=== PATIENT | male | born 1930 | race Caucasian/White ===

== ENCOUNTER → 2016-05-04 | Outpatient (CLI) | payer MEDICARE, OTHER ==
--- NOTE | 2016-05-04 12:11 | BD ---
EXAMINATION TYPE: MG DEXA axial skeleton. DATE OF EXAM: 05/04/2016 11:36 AM COMPARISON: 12.12.2005 CLINICAL HISTORY: M81.0 KNOWN OSTEOPOROSIS Height: 66.5 Weight: 175 FRAX RISK QUESTIONS: Alcohol (3 or more units per day): NO Family History (Parent hip fracture): UNKNOWN Glucocorticoids (More than 3mos): NO (Ex: prednisone, prednisolone, methylprednisolone, dexamethasone, and hydrocortisone). History of Fracture in Adulthood: YES Secondary Osteoporosis: YES 1. Type 1 Diabetes: TYPE 2 2. Hyperthyroidism: NO 3. Menopause before 45: NA 4. Malnutrition: PT COULD NOT ANSWER TO THIS 5. Chronic liver disease: NO Rheumatoid Arthritis: NO Current Tobacco Use: NO RISK FACTORS HISTORY OF: Other Fractures since Age 48: RT WRIST AND RT SHOULDER When: > 48 YRS OLD Family History of Osteoporosis: NONE KNOWN Smoke tobacco: NO Drink Alcohol: NO Active: NOT REALLY Diet low in dairy products/other sources of calcium: NO Lost more than 2 inches in height since high school: YES Frequent falls: UNSTEADY, USE CANE AND WALKER Poor Health: ELDERLY Adrenal Insufficiency: NO MEDICATIONS: Osteoporosis Medications: YES Which medication: FOSAMAX How Long: SINCE 2005 Additional Medications: BP MEDS, STATIN MEDICATION FOR CHOLESTEROL, ORAL DIABETIC MEDS, VIT D, Additional History: ARTHRITIS, DIABETIC, HYPERTENSION EXAM MEASUREMENTS: Bone mineral densitometry was performed using the [employer] System. Bone mineral density as measured about the Lumbar spine is: ----- L1-L4(G/cm2): 1.420 T Score Values are as follows: ----- L1: 1.1 ----- L2: 2.3 ----- L3: 2.1 ----- L4: 2.3 ----- L1-L4: 2.0 Bone mineral density has: Increased 14.1% since study of: 12.12.2005 Bone mineral density about the R hip (g/cm2): 0.949 Bone mineral density about the L hip (g/cm2): 0.952 T Score values are as follows: -----R Neck: -0.6 -----L Neck: -0.6 -----R Intertrochanter: 1.2 -----L Intertrochanter: 0.9 Bone mineral density has: Increased 7.0% since study of: 12.12.2005 FRAX%'S: FOR MAJOR OSTEOPOROTIC FX: 8.0%.....FOR HIP FX: 2.7% PROBABILITY OF FX IN 10 YRS TIME IMPRESSION: Normal (Values between +1 and -1 indicate normal bone mass) FOR BOTH SCANS, L/S SPINE AND BOTH HIP S NOTE: T-SCORE=SD OF THE YOUNG ADULT MEAN.
== END | disposition home or self-care (01) ==
LOC: RADBDWWP 11:09
PROVIDERS: ATTEND Internal Medicine
DX: M85.80 Other specified disorders of bone density and structure, unspecified site (principal)
CPT/HCPCS: 77080

== ENCOUNTER 2016-05-16 23:37 | Emergency (ER) | payer MEDICARE, OTHER ==
[2016-05-17 00:05] VITALS: BP 165/92; PULSE 62; RESP 18; TEMP 98.4
[2016-05-17] MEDS ORDERED: OXYMETAZOLINE 0.05% NASL SPRAY 15 ML NASAL STA (00:25)
[2016-05-17] MEDS ORDERED: AMOXIC-POT CLAV 875MG STARTER 2 EACH TABLET PO STA (00:32)
--- NOTE | 2016-05-17 00:35 | ED ---
General Adult HPI - General Chief complaint: Upper Respiratory Infection Stated complaint: TORI Time Seen by Provider: 05/17/16 00:11 Source: patient, family, RN notes reviewed Mode of arrival: ambulatory Limitations: no limitations - History of Present Illness Initial comments: Chief complaint and history of present illness this is a 5-year-old male here with her son. Patient reports that he called his son because he couldn't breathe out of the left nostril. He is able to do it now partially. It was congested at home. He's had 3 or 4 days of frontal area congestion. No fever no pain - Related Data Previous Rx's Medication Instructions Recorded Amoxicillin/Potassium Clav 1 each PO Q12HR #14 tab 05/17/16 [Augmentin 875-125 Tablet] Allergies Allergy/AdvReac Type Severity Reaction Status Date / Time No Known Allergies Allergy Verified 05/17/16 00:01 Review of Systems ROS Statement: Those systems with pertinent positive or pertinent negative responses have been documented in the HPI. Review of systems no headache he does state he has felt congested for 3-4 days. Denying any fever. Points to the area between the eyes. States he when he awakened he couldn't breathe through his left side of his nose at all and then while coming here opened up slightly. Clear nasal drainage. Denying any visual acuity changes or headache no stiff neck no chest pain shortness breath GI/ problems all systems were otherwise reviewed. Past medical problems significant for type 2 diabetes, hyperlipidemia, hypertension and osteoarthritis. Surgeries hernia repair. Family history mother had uterine cancer and brother had colon cancer. Patient denies any ALLERGIES he quit smoking 60 years ago denies alcohol use ROS Other: All systems not noted in ROS Statement are negative. Past Medical History Past Medical History: Diabetes Mellitus, Hyperlipidemia, Hypertension, Osteoarthritis (OA) History of Any Multi-Drug Resistant Organisms: None Reported Past Surgical History: Hernia Repair Past Psychological History: No Psychological Hx Reported Smoking Status: Former smoker Past Alcohol Use History: None Reported Past Drug Use History: None Reported General Exam - General Exam Comments Initial Comments: General: The patient is awake and alert, in no distress, and does not appear acutely ill. Here because he had difficulty breathing to his left nares and has had nasal congestion frontal area sinus pressure for 4 days. Vital signs show temperature 98.4 pulse 62 respiratory rate 18 pulse ox 94% on room air blood pressure 165/92. The patient does have history of hypertension and he is up late at night with some difficulty breathing. All up with his family physician in the next 1-2 weeks Eye: Pupils are equal, round and reactive to light, extra-ocular movements are intact ; there is normal conjunctiva bilaterally. No signs of icterus. Ears, nose, mouth and throat: There are moist mucous membranes and no oral lesions. Mildly swollen turbinates and nasal congestion on the left side as compared to the right. No bleeding. No masses noted on direct examination Neck: The neck is supple, there is no tenderness , no anterior cervical lymphadenopathy Cardiovascular: There is a regular rate and rhythm. No murmur, rub or gallop is appreciated. Respiratory: Lungs are clear to auscultation, respirations are non-labored, breath sounds are equal. No wheezes, stridor, rales, or rhonchi. Gastrointestinal: No complaint of abdominal pain no nausea no vomiting no complaint of diarrhea. Neurological: No difficulty walking, no apparent neuro deficits complained of. Skin: Skin is warm and dry and no rashes or lesions are noted. Limitations: no limitations Course Vital Signs 05/17/16 00:01 Temperature 98.4 F Pulse Rate 62 Respiratory 18 Rate Blood Pressure 165/92 O2 Sat by Pulse 94 L Oximetry Medical Decision Making - Medical Decision Making The patient will be given Afrin nasal spray to be used to the emergency room. He'll also be placed on Augmentin 875 one twice a day for 7 days. Told follow with the family physician Disposition Clinical Impression: Sinusitis chronic, frontal Disposition: HOME SELF-CARE Condition: Fair Instructions: Rhinosinusitis (ED) Additional Instructions: Take medications as directed until completed. Follow-up with family physician Prescriptions: Amoxicillin/Potassium Clav [Augmentin 875-125 Tablet] 1 each PO Q12HR #14 tab Time of Disposition: 00:34
== END 2016-05-17 00:50 | disposition home or self-care (01) ==
LOC: EC 23:37
DX: J32.9 Chronic sinusitis, unspecified (principal); I10 Essential (primary) hypertension; M19.90 Unspecified osteoarthritis, unspecified site; E78.5 Hyperlipidemia, unspecified; E11.9 Type 2 diabetes mellitus without complications; Z87.891 Personal history of nicotine dependence
CPT/HCPCS: 99284

== ENCOUNTER 2018-02-16 15:22 | Emergency (ER) | payer MEDICARE, OTHER ==
[2018-02-16 15:34] VITALS: RESP 18; TEMP 97.8
--- NOTE | 2018-02-16 15:43 | ED ---
Fall HPI <Sheryl Steen - Last Filed: 02/16/18 17:06> - General Source: patient, EMS Mode of arrival: EMS - History of Present Illness MD Complaint: fall -: minutes(s) Fall From: standing When Fall Occurred: 1 hour BELL[employer]ER Fall Witnessed: yes, by family Place Fall Occurred: street Loss of Consciousness: none Prolonged Down Time?: no Symptoms Prior to Fall: none Location: head Severity: moderate Severity scale (1-10): 2 Context: history of frequent falls Associated Symptoms: denies <Bam Fried - Last Filed: 02/16/18 17:39> - General Chief Complaint: Fall Stated Complaint: Fall Time Seen by Provider: 02/16/18 15:23 - History of Present Illness Initial Comments: This is an 87-year-old male the ER for evaluation of fall mechanical trip and fall. Patient tried to step over a curb was unsuccessful fell forward hit his had his nose and his right hand. Patient has abrasions to all areas of laceration to forehead. No loss of consciousness, not on blood thinners. Patient was ambulatory on the scene (Bam Fried) - Related Data Previous Rx's Medication Instructions Recorded Amoxicillin/Potassium Clav 1 each PO Q12HR #14 tab 05/17/16 [Augmentin 875-125 Tablet] Allergies Allergy/AdvReac Type Severity Reaction Status Date / Time No Known Allergies Allergy Verified 02/16/18 15:33 Review of Systems ROS Other: All systems not noted in ROS Statement are negative. <Sheryl Steen - Last Filed: 02/16/18 17:06> ROS Other: All systems not noted in ROS Statement are negative. <Bam Fried - Last Filed: 02/16/18 17:39> ROS Statement: Those systems with pertinent positive or pertinent negative responses have been documented in the HPI. Past Medical History Past Medical History: Diabetes Mellitus, Hyperlipidemia, Hypertension, Osteoarthritis (OA) History of Any Multi-Drug Resistant Organisms: None Reported Past Surgical History: Hernia Repair Past Psychological History: No Psychological Hx Reported Smoking Status: Former smoker Past Alcohol Use History: None Reported Past Drug Use History: None Reported <Bam Fried - Last Filed: 02/16/18 17:39> General Exam Limitations: no limitations General appearance: alert, in no apparent distress Head exam: Present: normocephalic, normal inspection. Absent: atraumatic (5 cm laceration and anterior scalp) Eye exam: Present: normal appearance, PERRL, EOMI. Absent: scleral icterus, conjunctival injection, periorbital swelling ENT exam: Present: normal exam, mucous membranes moist Neck exam: Present: normal inspection. Absent: tenderness, meningismus, lymphadenopathy Respiratory exam: Present: normal lung sounds bilaterally. Absent: respiratory distress, wheezes, rales, rhonchi, stridor Cardiovascular Exam: Present: regular rate, normal rhythm, normal heart sounds. Absent: systolic murmur, diastolic murmur, rubs, gallop, clicks GI/Abdominal exam: Present: soft, normal bowel sounds. Absent: distended, tenderness, guarding, rebound, rigid Extremities exam: Present: normal inspection, full ROM, normal capillary refill. Absent: tenderness, pedal edema, joint swelling, calf tenderness Back exam: Present: normal inspection Neurological exam: Present: alert, oriented X3, CN II-XII intact Psychiatric exam: Present: normal affect, normal mood Skin exam: Present: warm, dry, intact, normal color. Absent: rash <Bam Fried - Last Filed: 02/16/18 17:39> Course <Sheryl Steen - Last Filed: 02/16/18 17:06> <Bam Fried - Last Filed: 02/16/18 17:39> Vital Signs 02/16/18 15:28 Temperature 97.8 F Pulse Rate 74 Respiratory 18 Rate Blood Pressure 165/82 O2 Sat by Pulse 95 Oximetry - Reevaluation(s) Reevaluation #1: 02/16/18 17:38 Records reviewed A she is without significant complaint, (Bam Fried) Procedures - Laceration Laceration #1 Consent Obtained: verbal consent Indication: laceration Site: face (mid forehead) Size (cm): 3 Description: linear Depth: simple, single layer Anesthetic Used: lidocaine 1% Anesthesia Technique: local infiltration Amount (mls): 3 Pre-repair: wound explored, irrigated extensively, deep structures intact Type of Sutures: nylon Size of Sutures: 6-0 Number of Sutures: 5 Technique: simple, interrupted Patient Tolerated Procedure: well, no complications <Sheryl Steen - Last Filed: 02/16/18 17:06> Medical Decision Making <Sheryl Steen - Last Filed: 02/16/18 17:06> - Radiology Data Radiology results: report reviewed (CT brain C-spine negative for acute disease) , image reviewed <Bam Fried - Last Filed: 02/16/18 17:39> - Medical Decision Making 87 male the ER for evaluation per patient is a status post fall. Fall with laceration to forehead. Patient also has some hand abrasions, all wounds are cleaned, laceration is repaired and patient can be discharged home (Bam Fried) Disposition <Sheryl Steen - Last Filed: 02/16/18 17:06> Is patient prescribed a controlled substance at d/c from ED?: No <Bam Fried - Last Filed: 02/16/18 17:39> Clinical Impression: Fall, Head injury, Laceration Disposition: HOME SELF-CARE Condition: Good Instructions: Laceration (ED), Fall Prevention for Older Adults (ED) Referrals: Duc Houser MD [Primary Care Provider] - 1-2 days
--- NOTE | 2018-02-16 16:12 | CT ---
EXAMINATION TYPE: CT brain ivon orellana DATE OF EXAM: 02/16/2018 COMPARISON: None HISTORY: Fall injury today neck pain. Headache CT DLP: 942.7 mGycm Automated exposure control for dose reduction was used. TECHNIQUE: CT scan of the head and cervical spine are performed without contrast. FINDINGS: There is cerebral cortical atrophy. There is no mass effect nor midline shift. There is n o sign of intracranial hemorrhage. The calvarium is intact. There is a mild cervical kyphotic curvature. There is degenerative disc space narrowing at C5-6 C6-7 with mild spurring of the endplates. Posterior elements are intact. There is no evidence of cervical spine fracture. The skull base is intact. There is mild hypertrophic facet arthropathy. IMPRESSION: Cerebral atrophy. No acute intracranial abnormality. Spondylotic mild changes in the cervical spine. No fracture.
--- NOTE | 2018-02-16 16:17 | XR ---
EXAMINATION TYPE: XR hand complete RT DATE OF EXAM: 02/16/2018 COMPARISON: NONE HISTORY: Pain and bruising TECHNIQUE: 3 views FINDINGS: There is narrowing of IP joint spaces. Metacarpals appear intact. I see no fracture nor dis location. There are no erosions. IMPRESSION: Mild osteoarthritic changes. No fracture seen.
--- NOTE | 2018-02-16 16:18 | XR ---
EXAMINATION TYPE: XR wrist complete RT DATE OF EXAM: 02/16/2018 COMPARISON: NONE HISTORY: Pain and bruising TECHNIQUE: 4 views FINDINGS: I see no fracture nor dislocation. Metacarpals are intact. Carpal bones are intact. IMPRESSION: Negative right wrist exam.
[2018-02-16 17:39] VITALS: BP 160/72; PULSE 64
== END 2018-02-16 17:39 | disposition home or self-care (01) ==
LOC: EC 15:22
DX: S01.81XA Laceration without foreign body of other part of head, initial encounter (principal); S60.511A Abrasion of right hand, initial encounter; M19.90 Unspecified osteoarthritis, unspecified site; Z87.891 Personal history of nicotine dependence; Z91.81 History of falling; W01.10XA Fall on same level from slipping, tripping and stumbling with subsequent striking against unspecified object, initial encounter; Y92.410 Unspecified street and highway as the place of occurrence of the external cause
CPT/HCPCS: 12013; 70450; 72125; 99284

== ENCOUNTER 2018-02-19 12:37 | Inpatient (IN) | payer MEDICARE, OTHER ==
[2018-02-19] MEDS ORDERED: SODIUM CHLORIDE 0.9% 1,000 ML IV STA (12:55)
--- NOTE | 2018-02-19 13:06 | ED ---
Neuro HPI - General Chief Complaint: Neuro Symptoms/Deficit Stated Complaint: altered mental status, slurred speech Time Seen by Provider: 02/19/18 12:55 Source: patient, RN notes reviewed, old records reviewed Mode of arrival: wheelchair Limitations: no limitations, altered mental status - History of Present Illness Is the patient presenting with stroke symptoms?: Yes -: hour(s) Initial Comments: This is a 7-year-old male to the ER for evaluation. Patient was acting normal last night. Recent medical history includes history of trauma fall with head injury. Patient is coming to ER today for evaluation regarding slurred speech and some confusion. Patient is similar episode about a month ago was admitted to the hospital and hence discharged home. Patient himself has no complaints of headache. No recent fevers no chest pain or bowel pain or shortness of breath. Patient's family who is at bedside states patient symptoms are much improved Location: speech History of same: Yes Place: home Severity: mild Quality: weak Improves With: time Worsens With: none On Anticoagulants: Yes Associated Symptoms: confusion Treatments Prior to Arrival: none - Related Data Home Medications: Home Medications Medication Instructions Recorded Confirmed Acetaminophen [Tylenol] 325 mg PO Q4H 02/19/18 02/19/18 Alendronate Sodium [Fosamax] 70 mg PO Q7DAYS 02/19/18 02/19/18 Aspirin [Adult Low Dose Aspirin EC] 81 mg PO DAILY 02/19/18 02/19/18 Atenolol [Tenormin] 25 mg PO DAILY 02/19/18 02/19/18 Cholecalciferol [Vitamin D3] 1,000 unit PO DAILY 02/19/18 02/19/18 Latanoprost [Xalatan 0.005%] 1 drop BOTH EYES HS 02/19/18 02/19/18 Levothyroxine Sodium [Synthroid] 50 mcg PO DAILY 02/19/18 02/19/18 Lisinopril-Hctz 10-12.5 mg 1 tab PO DAILY 02/19/18 02/19/18 [Zestoretic 10-12.5] Pravastatin Sodium [Pravachol] 40 mg PO HS 02/19/18 02/19/18 Propranolol HCl [Inderal] 60 mg PO DAILY 02/19/18 02/19/18 glipiZIDE [Glucotrol] 5 mg PO DAILY 02/19/18 02/19/18 metFORMIN HCL [Glucophage] 500 mg PO DAILY 02/19/18 02/19/18 Allergies/Adverse Reactions: Allergies Allergy/AdvReac Type Severity Reaction Status Date / Time No Known Allergies Allergy Verified 02/19/18 13:40 Review of Systems ROS Statement: Those systems with pertinent positive or pertinent negative responses have been documented in the HPI. ROS Other: All systems not noted in ROS Statement are negative. General Exam - General Exam Comments Initial Comments: NIH of 1 Limitations: no limitations General appearance: alert, in no apparent distress Head exam: Present: atraumatic, normocephalic, normal inspection Eye exam: Present: normal appearance, PERRL, EOMI. Absent: scleral icterus, conjunctival injection, periorbital swelling ENT exam: Present: normal exam, mucous membranes moist Neck exam: Present: normal inspection. Absent: tenderness, meningismus, lymphadenopathy Respiratory exam: Present: normal lung sounds bilaterally. Absent: respiratory distress, wheezes, rales, rhonchi, stridor Cardiovascular Exam: Present: regular rate, normal rhythm, normal heart sounds. Absent: systolic murmur, diastolic murmur, rubs, gallop, clicks GI/Abdominal exam: Present: soft, normal bowel sounds. Absent: distended, tenderness, guarding, rebound, rigid Extremities exam: Present: normal inspection, full ROM, normal capillary refill. Absent: tenderness, pedal edema, joint swelling, calf tenderness Back exam: Present: normal inspection Neurological exam: Present: alert, oriented X3, CN II-XII intact Psychiatric exam: Present: normal affect, normal mood Skin exam: Present: warm, dry, intact, normal color. Absent: rash Stroke MDM - Lab Data Result diagrams: 02/19/18 13:22 02/19/18 13:22 Lab Results 02/19/18 02/19/18 02/19/18 Range/Units 13:22 13:22 13:22 WBC 5.9 (3.8-10.6) k/uL RBC 4.31 (4.30-5.90) m/uL Hgb 13.4 (13.0-17.5) gm/dL Hct 39.1 (39.0-53.0) % MCV 90.8 (80.0-100.0) fL MCH 31.0 (25.0-35.0) pg MCHC 34.2 (31.0-37.0) g/dL RDW 13.7 (11.5-15.5) % Plt Count 126 L (150-450) k/uL Neutrophils % 71 % Lymphocytes % 18 % Monocytes % 6 % Eosinophils % 3 % Basophils % 0 % Neutrophils # 4.2 (1.3-7.7) k/uL Lymphocytes # 1.1 (1.0-4.8) k/uL Monocytes # 0.4 (0-1.0) k/uL Eosinophils # 0.2 (0-0.7) k/uL Basophils # 0.0 (0-0.2) k/uL PT (9.0-12.0) sec INR (<1.2) APTT (22.0-30.0) sec Sodium 139 (137-145) mmol/L Potassium 4.0 (3.5-5.1) mmol/L Chloride 104 (98-107) mmol/L Carbon Dioxide 27 (22-30) mmol/L Anion Gap 8 mmol/L BUN 24 H (9-20) mg/dL Creatinine 1.16 (0.66-1.25) mg/dL Est GFR (CKD-EPI)AfAm 65 (>60 ml/min/1.73 sqM) Est GFR (CKD-EPI)NonAf 56 (>60 ml/min/1.73 sqM) Glucose 121 H (74-99) mg/dL Calcium 9.2 (8.4-10.2) mg/dL Total Bilirubin 0.9 (0.2-1.3) mg/dL AST 17 (17-59) U/L ALT 20 L (21-72) U/L Alkaline Phosphatase 39 (38-126) U/L Total Creatine Kinase 72 (55-170) U/L CK-MB (CK-2) 1.8 (0.0-2.4) ng/mL CK-MB (CK-2) Rel Index 2.5 Troponin I <0.012 (0.000-0.034) ng/mL Total Protein 6.3 (6.3-8.2) g/dL Albumin 3.8 (3.5-5.0) g/dL Urine Color Urine Appearance (Clear) Urine pH (5.0-8.0) Ur Specific [place] (1.001-1.035) Urine Protein (Negative) Urine Glucose (UA) (Negative) Urine Ketones (Negative) Urine Blood (Negative) Urine Nitrite (Negative) Urine Bilirubin (Negative) Urine Urobilinogen (<2.0) mg/dL Ur Leukocyte Esterase (Negative) Urine RBC (0-5) /hpf Urine WBC (0-5) /hpf Urine Mucus (None) /hpf 02/19/18 02/19/18 Range/Units 13:22 14:10 WBC (3.8-10.6) k/uL RBC (4.30-5.90) m/uL Hgb (13.0-17.5) gm/dL Hct (39.0-53.0) % MCV (80.0-100.0) fL MCH (25.0-35.0) pg MCHC (31.0-37.0) g/dL RDW (11.5-15.5) % Plt Count (150-450) k/uL Neutrophils % % Lymphocytes % % Monocytes % % Eosinophils % % Basophils % % Neutrophils # (1.3-7.7) k/uL Lymphocytes # (1.0-4.8) k/uL Monocytes # (0-1.0) k/uL Eosinophils # (0-0.7) k/uL Basophils # (0-0.2) k/uL PT 10.1 (9.0-12.0) sec INR 1.0 (<1.2) APTT 22.5 (22.0-30.0) sec Sodium (137-145) mmol/L Potassium (3.5-5.1) mmol/L Chloride (98-107) mmol/L Carbon Dioxide (22-30) mmol/L Anion Gap mmol/L BUN (9-20) mg/dL Creatinine (0.66-1.25) mg/dL Est GFR (CKD-EPI)AfAm (>60 ml/min/1.73 sqM) Est GFR (CKD-EPI)NonAf (>60 ml/min/1.73 sqM) Glucose (74-99) mg/dL Calcium (8.4-10.2) mg/dL Total Bilirubin (0.2-1.3) mg/dL AST (17-59) U/L ALT (21-72) U/L Alkaline Phosphatase (38-126) U/L Total Creatine Kinase (55-170) U/L CK-MB (CK-2) (0.0-2.4) ng/mL CK-MB (CK-2) Rel Index Troponin I (0.000-0.034) ng/mL Total Protein (6.3-8.2) g/dL Albumin (3.5-5.0) g/dL Urine Color Yellow Urine Appearance Clear (Clear) Urine pH 6.5 (5.0-8.0) Ur Specific [place] 1.014 (1.001-1.035) Urine Protein Negative (Negative) Urine Glucose (UA) 3+ H (Negative) Urine Ketones Negative (Negative) Urine Blood Negative (Negative) Urine Nitrite Negative (Negative) Urine Bilirubin Negative (Negative) Urine Urobilinogen <2.0 (<2.0) mg/dL Ur Leukocyte Esterase Small H (Negative) Urine RBC 1 (0-5) /hpf Urine WBC 2 (0-5) /hpf Urine Mucus Rare H (None) /hpf - NIH Stroke Scale 1a. Level of Consciousness: (0) alert 1b. LOC Questions: (1) answers 1 question correctly 1c. LOC Commands: (1) performs 1 task correctly 2. Best Gaze: (0) normal 3. Visual: (0) no visual loss 4. Facial Palsy: (0) normal symmetrical movement 5a. Motor Arm Left: (0) no drift 5b. Motor Arm Right: (0) no drift 6a. Motor Leg Left: (0) no drift 6b. Motor Leg Right: (0) no drift 7. Limb Ataxia: (0) absent 8. Sensory: (0) normal 9. Best Language: (0) no aphasia 10. Dysarthria: (0) normal 11. Extinction/Inattention: (0) no abnormality - Thrombolytic Inclusion/Exclusion Thrombolytic Contraindications: Rapidly Improving s/s - Radiology Data Radiology results: report reviewed (CT brain CTA had not is negative), image reviewed - EKG Data -: EKG Interpreted by Me (EKG shows sinus rhythm rate of 68, [place] 150, QRS 80, QTC 421) EKG shows normal: sinus rhythm Rate: normal Past Medical History Past Medical History: Diabetes Mellitus, Hyperlipidemia, Hypertension, Osteoarthritis (OA) History of Any Multi-Drug Resistant Organisms: None Reported Past Surgical History: Hernia Repair Past Psychological History: No Psychological Hx Reported Smoking Status: Former smoker Past Alcohol Use History: None Reported Past Drug Use History: None Reported Course Vital Signs 02/19/18 02/19/18 02/19/18 12:47 13:03 13:10 Temperature 97.8 F Pulse Rate 72 68 Respiratory 18 14 Rate Blood Pressure 148/82 163/78 O2 Sat by Pulse 97 94 L 95 Oximetry 02/19/18 02/19/18 02/19/18 13:20 13:30 13:40 Temperature Pulse Rate 67 69 Respiratory 18 8 L Rate Blood Pressure 163/78 163/78 151/76 O2 Sat by Pulse 94 L 96 Oximetry 02/19/18 02/19/18 14:30 14:44 Temperature Pulse Rate 689 H 68 Respiratory 16 Rate Blood Pressure 151/76 O2 Sat by Pulse 97 Oximetry - Reevaluation(s) Reevaluation #1: 02/19/18 14:48 Medical record is reviewed Reevaluation #2: 02/19/18 14:48 Patient's symptoms remain improved Disposition Clinical Impression: Cerebrovascular accident, Transient cerebral ischemia Disposition: ADMITTED IP TO THIS HOSP Condition: Fair Is patient prescribed a controlled substance at d/c from ED?: No Referrals: Duc Houser MD [Primary Care Provider] - 1-2 days
[2018-02-19 13:37] LABS: Basophils % (A) 0 %; Eosinophils # (A) 0.2 k/uL (0-0.7); Eosinophils % (A) 3 %; HCT 39.1 % (39.0-53.0); HGB 13.4 gm/dL (13.0-17.5); Lymphocytes # (A) 1.1 k/uL (1.0-4.8); Lymphocytes % (A) 18 %; MCHC 34.2 g/dL (31.0-37.0); MCV 90.8 fL (80.0-100.0); Mean Platelet Volume 7.3; Monocytes # (A) 0.4 k/uL (0-1.0); Monocytes % (A) 6 %; Neutrophils # (A) 4.2 k/uL (1.3-7.7); Neutrophils % (A) 71 %; Platelet Count 126 k/uL (150-450); RBC 4.31 m/uL (4.30-5.90); RDW 13.7 % (11.5-15.5); WBC 5.9 k/uL (3.8-10.6)
[2018-02-19 13:47] LABS: Partial Thromboplastin Time 22.5 sec (22.0-30.0); Prothrombin Time 10.1 sec (9.0-12.0)
[2018-02-19 13:49] LABS: Albumin 3.8 g/dL (3.5-5.0); Calcium 9.2 mg/dL (8.4-10.2); Total Bilirubin 0.9 mg/dL (0.2-1.3); Total Protein 6.3 g/dL (6.3-8.2)
[2018-02-19 14:01] LABS: Creatine Kinase 72 U/L (55-170)
[2018-02-19 14:13] LABS: Creatine Kinase MB 1.8 ng/mL (0.0-2.4); Troponin I <0.012 ng/mL (0.000-0.034)
--- NOTE | 2018-02-19 14:37 | CT ---
EXAMINATION TYPE: CT brain wo con for TPA DATE OF EXAM: 02/19/2018 COMPARISON: 02/16/2018 HISTORY: Slurred speech, confusion, recent fall 02/16/2018 CT DLP: 1016 mGycm Automated exposure control for dose reduction was used. TECHNIQUE: CT scan of the head is performed without contrast. FINDINGS: There is no acute intracranial hemorrhage or midline shift identified. There is diffuse v entricular and sulcal prominence consistent with diffuse age-related cerebral atrophy. There a few a reas of low-attenuation in the periventricular white matter consistent with chronic small vessel isch emic change. The globes are intact and the visualized sinuses are clear. IMPRESSION: No acute intracranial process. Mild cerebral volume loss, likely on the basis of age-rel ated atrophy as seen on the prior.
[2018-02-19 14:38] LABS: Appearance,Urine Clear (Clear); Bilirubin,Urine Negative (Negative); Blood,Urine Negative (Negative); Color,Urine Yellow; Glucose,Urine (UA) 3+ (Negative); Ketones,Urine Negative (Negative); Leukocyte Esterase,Urine Small (Negative); Mucus,Urine Rare /hpf; Nitrite,Urine Negative (Negative); PH, Urine 6.5 (5.0-8.0); Protein,Urine Negative (Negative); RBC,Urine 1 /hpf (0-5); Specific Gravity,Urine 1.014 (1.001-1.035); Urobilinogen,Urine <2.0 mg/dL (<2.0); WBC,Urine 2 /hpf (0-5)
--- NOTE | 2018-02-19 14:43 | CT ---
EXAMINATION TYPE: CT angio head neck DATE OF EXAM: 02/19/2018 HISTORY: Slurred speech, confusion, recent fall 02/16/2018 COMPARISON: CT brain of the same date CT DLP: 351.4 mGycm. Automated Exposure Control for Dose Reduction was Utilized. TECHNIQUE: CTA scan of the neck is performed with IV Contrast, patient injected with 65 mL of Isovue 370, axial images are obtained, coronal and sagittal reformatted images are reviewed. Three-D recons tructed images are created on an independent workstation and reviewed. FINDINGS: Carotid/Vascular Structures: No evidence of focal stenosis is seen. Small marginal osteosclerosis is noted at the origin of the left vertebral artery. Conventional three-vessel branch pattern is noted o f the aortic arch. Common carotid arteries, internal carotid arteries, vertebral arteries, and intrac ranial large vessels appear patent. No evidence of dissection or focal aneurysm. No evidence of focal vascular occlusion or developmental venous anomaly. Other: Subsegmental atelectasis is seen at the lung apices. Mild multilevel degenerative disc disease is present of the cervical spine. IMPRESSION: No large vessel vascular occlusion, focal aneurysm or dissection of the head or neck.
--- NOTE | 2018-02-19 15:09 | XR ---
EXAMINATION TYPE: XR chest 2V DATE OF EXAM: 02/19/2018 COMPARISON: NONE HISTORY: Altered mental status and slurred speech TECHNIQUE: Frontal and lateral views of the chest are obtained. FINDINGS: There is no focal air space opacity, pleural effusion, or pneumothorax seen. The cardiac silhouette size is upper limits of normal in size. The osseous structures are intact. Mild multilev el degenerative changes of the spine are noted. There is diffuse osseous demineralization. IMPRESSION: No acute cardiopulmonary process.
[2018-02-19] MEDS: SODIUM CHLORIDE 0.9% 1,000 ML IV SCH ×2 (15:21→20:57)
[2018-02-19] MEDS ORDERED: ACETAMINOPHEN TAB 325 MG TAB PO PRN (16:15)
--- NOTE | 2018-02-19 16:30 | P.HPIM ---
History of Present Illness H&P Date: 02/19/18 Chief Complaint: Slurred speech This is an 87-year-old male patient that presented to the emergency room with complaints of slurred speech and trouble finding his words. Patient's daughters currently at bedside. Per family patient on Saturday and hit his head. Patient was brought into the emergency room and scans were completed and patient was later discharged. Per patient's family symptoms started this afternoon when daughter went over to check on her father. Since then symptoms have improved significantly. Patient has a known past medical history of Parkinson's, diabetes mellitus, hyperlipidemia, hypertension and osteoarthritis. CT of brain completed showing no acute intracranial process. Mild cerebral volume loss, likely on the basis of age-related atrophy is seen on prior. CTA completed showing not no large vessel vascular occlusion, focal aneurysm or dissection of the head or neck. Chest x-ray completed showing no acute cardiopulmonary process. EKG completed showing normal sinus rhythm. At this time patient is resting comfortably in bed. Bruising noted to bilateral eyes and forehead. No signs of facial droop or slurred speech at this time patient is delayed in response. Patient has equal strength throughout. Memory appears to be intact. Patient denies chest pain or shortness of breath. Patient denies any urinary burning or frequency. Neurology services have been consulted. Patient started on aspirin 325. 2-D echo has been ordered. Review of Systems Please refer to HPI otherwise unremarkable Past Medical History Past Medical History: Diabetes Mellitus, Hyperlipidemia, Hypertension, Osteoarthritis (OA) History of Any Multi-Drug Resistant Organisms: None Reported Past Surgical History: Hernia Repair Past Psychological History: No Psychological Hx Reported Smoking Status: Former smoker Past Alcohol Use History: None Reported Past Drug Use History: None Reported Medications and Allergies Home Medications Medication Instructions Recorded Confirmed Type Acetaminophen [Tylenol] 325 mg PO Q4H 02/19/18 02/19/18 History Alendronate Sodium [Fosamax] 70 mg PO Q7DAYS 02/19/18 02/19/18 History Aspirin [Adult Low Dose Aspirin EC] 81 mg PO DAILY 02/19/18 02/19/18 History Atenolol [Tenormin] 25 mg PO DAILY 02/19/18 02/19/18 History Cholecalciferol [Vitamin D3] 1,000 unit PO DAILY 02/19/18 02/19/18 History Latanoprost [Xalatan 0.005%] 1 drop BOTH EYES HS 02/19/18 02/19/18 History Levothyroxine Sodium [Synthroid] 50 mcg PO DAILY 02/19/18 02/19/18 History Lisinopril-Hctz 10-12.5 mg 1 tab PO DAILY 02/19/18 02/19/18 History [Zestoretic 10-12.5] Pravastatin Sodium [Pravachol] 40 mg PO HS 02/19/18 02/19/18 History Propranolol HCl [Inderal] 60 mg PO DAILY 02/19/18 02/19/18 History glipiZIDE [Glucotrol] 5 mg PO DAILY 02/19/18 02/19/18 History metFORMIN HCL [Glucophage] 500 mg PO DAILY 02/19/18 02/19/18 History Allergies Allergy/AdvReac Type Severity Reaction Status Date / Time No Known Allergies Allergy Verified 02/19/18 13:40 Physical Exam Vitals: Vital Signs Temp Pulse Resp BP Pulse Ox 02/19/18 14:44 68 02/19/18 14:30 689 H 16 151/76 97 02/19/18 13:40 151/76 02/19/18 13:30 69 8 L 163/78 96 02/19/18 13:20 67 18 163/78 94 L 02/19/18 13:10 68 14 163/78 95 02/19/18 13:03 94 L 02/19/18 12:47 97.8 F 72 18 148/82 97 Intake and Output 02/19/18 02/19/18 02/19/18 06:59 14:59 22:59 Other: Weight 82.554 kg Head normocephalic. Bruising noted to bilateral eyes. Abrasion to forehead and nose Neck supple Lungs clear to auscultation bilaterally no wheezing or crackles Heart regular rate and rhythm S1-S2, no rub or gallop Abdomen is soft nontender nondistended positive bowel sounds no hepatosplenomegaly Extremities no edema Neuro alert and orientated to 3. Equal strength throughout all exterminaties. No signs of facial droop or slurred speech. Patient does appear to have delayed response. Results CBC & Chem 7: 02/19/18 13:22 02/19/18 13:22 Labs: Abnormal Lab Results - Last 24 Hours (Table) 02/19/18 02/19/1818 Range/Units 13:22 13:22 14:10 Plt Count 126 L (150-450) k/uL BUN 24 H (9-20) mg/dL Glucose 121 H (74-99) mg/dL ALT 20 L (21-72) U/L Urine Glucose (UA) 3+ H (Negative) Ur Leukocyte Esterase Small H (Negative) Urine Mucus Rare H (None) /hpf Assessment and Plan Assessment: 1. Slurred speech and delayed response. Head CT completed showing no acute intracranial process. Mild cerebral volume loss, likely on the basis of age- related atrophy is seen on the prior. CTA completed showing no large vessel vascular occlusion, focal aneurysm or dissection of the head or neck. EKG showing normal sinus rythym Neurology services have been consulted. Patient started on aspirin 325. PT and OT services consulted. 2-D echo has been ordered. Neurology services consulted 2. Recent fall with trauma to head. Patient reports that he fell on Saturday. Patient does have bruising to bilateral eyes and abrasion to forehead 3. History of Parkinson's. Patient states he follows with Dr. Mendez 4. History of diabetes mellitus. Home medications resumed 5. History of hyperlipidemia. Pravastatin resumed 6. History of essential hypertension. Home medications resumed 7. History of osteoarthritis 8. Urinary analysis showing small amount of leukocyte Estrace. Patient denying any symptoms at this time. Urine culture has been ordered DVT prophylaxis Lovenox. GI prophylaxis Protonix Awaiting neuro consult AM CBC, CMP, lipid panel and 2-D echo ordered Urine culture ordered for follow-up to urinary analysis Time with Patient: Greater than 30 (Greater than 60% of the total time spent in counseling and coordination of care. I performed an examination of the patient and discussed their management with the Nurse Practitioner. I have reviewed the Nurse Practitioner's notes and agree with the documented findings and plan of care)
[2018-02-19 17:37] LABS: Glucose,Whole Blood 114 mg/dL (75-99)
[2018-02-19] MEDS: LATANOPROST 0.005% OPHTH DROPS 2.5 ML BTL BOTH EYES SCH (20:56)
[2018-02-19] MEDS: PRAVASTATIN SODIUM 40 MG TAB PO SCH (20:56)
[2018-02-19 21:41] LABS: Glucose,Whole Blood 175 mg/dL (75-99)
[2018-02-20 05:55] LABS: Glucose,Whole Blood 185 mg/dL (75-99)
[2018-02-20] MEDS: LEVOTHYROXINE 50 MCG TAB PO SCH (06:04)
[2018-02-20 06:05] LABS: Basophils % (A) 1 %; Eosinophils # (A) 0.1 k/uL (0-0.7); Eosinophils % (A) 3 %; HCT 38.2 % (39.0-53.0); HGB 12.2 gm/dL (13.0-17.5); Lymphocytes # (A) 0.9 k/uL (1.0-4.8); Lymphocytes % (A) 21 %; MCH 29.5 pg (25.0-35.0); MCV 92.2 fL (80.0-100.0); Mean Platelet Volume 7.4; Monocytes # (A) 0.3 k/uL (0-1.0); Monocytes % (A) 6 %; Neutrophils # (A) 2.9 k/uL (1.3-7.7); Neutrophils % (A) 67 %; Platelet Count 124 k/uL (150-450); RBC 4.14 m/uL (4.30-5.90); RDW 13.7 % (11.5-15.5); WBC 4.2 k/uL (3.8-10.6)
[2018-02-20] MEDS: PANTOPRAZOLE 40 MG TABLET PO SCH (06:05)
[2018-02-20 06:24] LABS: Albumin 3.3 g/dL (3.5-5.0); Calcium 8.6 mg/dL (8.4-10.2); Potassium 4.3 mmol/L (3.5-5.1); Total Bilirubin 0.9 mg/dL (0.2-1.3); Total Protein 5.6 g/dL (6.3-8.2)
[2018-02-20] MEDS ORDERED: ASPIRIN 325 MG TAB PO SCH (09:00)
[2018-02-20] MEDS ORDERED: PROPRANOLOL 20 MG TAB PO SCH (09:00)
[2018-02-20] MEDS: ATENOLOL 25 MG TAB PO SCH (09:20)
[2018-02-20] MEDS: CHOLECALCIFEROL 1,000 UNIT TAB PO SCH (09:20)
[2018-02-20] MEDS: LISINOPRIL-HCTZ 10-12.5 MG 1 EACH TAB PO SCH (09:20)
[2018-02-20] MEDS: glipiZIDE 5 MG TAB PO SCH (09:20)
[2018-02-20] MEDS: metFORMIN 500 MG TAB PO SCH (09:20)
[2018-02-20] MEDS: ENOXAPARIN 40 MG/0.4 ML SYRINGE SQ SCH (09:20)
--- NOTE | 2018-02-20 11:07 | P.PN ---
Subjective Progress Note Date: 02/20/18 This is an 87-year-old male patient that presented to the emergency room with complaints of slurred speech and trouble finding his words. Patient's daughters currently at bedside. Per family patient on Saturday and hit his head. Patient was brought into the emergency room and scans were completed and patient was later discharged. Per patient's family symptoms started this afternoon when daughter went over to check on her father. Since then symptoms have improved significantly. Patient has a known past medical history of Parkinson's, diabetes mellitus, hyperlipidemia, hypertension and osteoarthritis. CT of brain completed showing no acute intracranial process. Mild cerebral volume loss, likely on the basis of age-related atrophy is seen on prior. CTA completed showing not no large vessel vascular occlusion, focal aneurysm or dissection of the head or neck. Chest x-ray completed showing no acute cardiopulmonary process. EKG completed showing normal sinus rhythm. At this time patient is resting comfortably in bed. Bruising noted to bilateral eyes and forehead. No signs of facial droop or slurred speech at this time patient is delayed in response. Patient has equal strength throughout. Memory appears to be intact. Patient denies chest pain or shortness of breath. Patient denies any urinary burning or frequency. Neurology services have been consulted. Patient started on aspirin 325. 2-D echo has been ordered. 02/20/2018 patient reports that his speech has shown improvement. Awaiting neurology and cardiology evaluation. In telemetry room heart rate was reported down into the 40s. He is on 2 beta blockers the atenolol and Inderal. Patient denies any weakness on one side of the body. Denies any chest pain or shortness of breath. Denies any nausea vomiting bowel movement changes or urinary symptoms. Objective - Vital Signs Vital signs: Vital Signs Temp 98.1 F 02/20/18 08:35 Pulse 66 02/20/18 08:35 Resp 16 02/20/18 08:35 BP 132/61 02/20/18 08:35 Pulse Ox 97 02/20/18 08:35 Intake & Output 02/19/18 02/20/18 02/20/18 18:59 06:59 18:59 Intake Total 800 240 Output Total 400 Balance 400 240 Weight 82.554 kg 81.2 kg Intake: Intake, IV Titration 800 Amount Sodium Chloride 0.9% 1, 800 000 ml @ 100 mls/hr IV . Q10H [facility] Rx#:[id number] Oral 240 Output: Urine 400 Other: Voiding Method Toilet Toilet Urinal Urinal # Voids 2 - Exam Head normocephalic. Face bruising around her eyes abrasion on forehead and nose from previous fall Neck supple Lungs clear to auscultation bilaterally no wheezing or crackles Heart regular rate and rhythm S1-S2, no rub or gallop Abdomen is soft nontender nondistended positive bowel sounds no hepatosplenomegaly Extremities no edema Neuro alert and orientated to 3 - Labs CBC & Chem 7: 02/20/18 05:24 02/20/18 05:24 Labs: Abnormal Lab Results - Last 24 Hours (Table) 02/19/18 02/19/18 02/19/18 Range/Units 13:22 13:22 14:10 RBC (4.30-5.90) m/uL Hgb (13.0-17.5) gm/dL Hct (39.0-53.0) % Plt Count 126 L (150-450) k/uL Lymphocytes # (1.0-4.8) k/uL BUN 24 H (9-20) mg/dL Glucose 121 H (74-99) mg/dL POC Glucose (mg/dL) (75-99) mg/dL AST (17-59) U/L ALT 20 L (21-72) U/L Alkaline Phosphatase (38-126) U/L Total Protein (6.3-8.2) g/dL Albumin (3.5-5.0) g/dL HDL Cholesterol (40-60) mg/dL Urine Glucose (UA) 3+ H (Negative) Ur Leukocyte Esterase Small H (Negative) Urine Mucus Rare H (None) /hpf 02/19/18 02/19/18 02/20/18 Range/Units 17:23 21:38 05:24 RBC (4.30-5.90) m/uL Hgb (13.0-17.5) gm/dL Hct (39.0-53.0) % Plt Count (150-450) k/uL Lymphocytes # (1.0-4.8) k/uL BUN (9-20) mg/dL Glucose 178 H (74-99) mg/dL POC Glucose (mg/dL) 114 H 175 H (75-99) mg/dL AST 15 L (17-59) U/L ALT 20 L (21-72) U/L Alkaline Phosphatase 31 L (38-126) U/L Total Protein 5.6 L (6.3-8.2) g/dL Albumin 3.3 L (3.5-5.0) g/dL HDL Cholesterol 38 L (40-60) mg/dL Urine Glucose (UA) (Negative) Ur Leukocyte Esterase (Negative) Urine Mucus (None) /hpf 02/20/18 02/20/18 Range/Units 05:24 05:54 RBC 4.14 L (4.30-5.90) m/uL Hgb 12.2 L (13.0-17.5) gm/dL Hct 38.2 L (39.0-53.0) % Plt Count 124 L (150-450) k/uL Lymphocytes # 0.9 L (1.0-4.8) k/uL BUN (9-20) mg/dL Glucose (74-99) mg/dL POC Glucose (mg/dL) 185 H (75-99) mg/dL AST (17-59) U/L ALT (21-72) U/L Alkaline Phosphatase (38-126) U/L Total Protein (6.3-8.2) g/dL Albumin (3.5-5.0) g/dL HDL Cholesterol (40-60) mg/dL Urine Glucose (UA) (Negative) Ur Leukocyte Esterase (Negative) Urine Mucus (None) /hpf Assessment and Plan Assessment: 1. Slurred speech and delayed response secondary to possible TIA. Head CT completed showing no acute intracranial process. Mild cerebral volume loss, likely on the basis of age-related atrophy is seen on the prior. CTA completed showing no large vessel vascular occlusion, focal aneurysm or dissection of the head or neck. EKG showing normal sinus rythym Neurology services have been consulted. Patient started on aspirin 325. Continue statin. PT and OT services consulted. 2-D echo has been ordered. Neurology services consulted. Continue telemetry monitoring. No evidence of atrial fibrillation. 2. Recent fall with trauma to head. Patient reports that he fell on Saturday. Patient does have bruising to bilateral eyes and abrasion to forehead 3. History of Parkinson's. Patient states he follows with Dr. Mendez 4. History of diabetes mellitus. Home medications resumed 5. History of hyperlipidemia. Pravastatin resumed 6. History of essential hypertension. Home medications resumed 7. History of osteoarthritis 8. Urinary analysis showing small amount of leukocyte Estrace. Patient denying any symptoms at this time. Urine culture pending 9. Sinus bradycardia heart rate into the 40s noted on telemetry. Patient is on 2 beta blockers atenolol and Inderal. Cardiology will be consulted for further recommendations DVT prophylaxis Lovenox. GI prophylaxis Protonix I performed an examination of the patient and discussed their management with the physician [employer]. I have reviewed the Physician [employer]'s notes and agree with the documented findings and plan of care
[2018-02-20 12:07] LABS: Glucose,Whole Blood 161 mg/dL (75-99)
--- NOTE | 2018-02-20 13:52 | P.CRDCN ---
History of Present Illness Consult date: 02/20/18 Requesting physician: Duc Houser Reason for Consult (text): Bradycardia Chief complaint: Slurring of speech History of present illness: This is a pleasant 87-year-old gentleman with history of hypertension , diabetes, hyperlipidemia, Parkinson's, osteoarthritis, hypothyroidism, who presents to the hospital on this occasion with symptoms of slurring of speech and mild mental status changes. CT of the brain did not reveal any acute intracranial process. Mild cerebral volume loss, likely on the basis of age- related atrophy as seen on prior. CT angiography did not reveal any large vessel vascular occlusion, focal aneurysm, or dissection of the head and neck. Chest x-ray did not reveal any acute process. EKG shows normal sinus rhythm with no acute changes. Blood pressure 162/70 with a heart rate in the 50s to 60s, 96% on room air. White blood cell count 4.2, hemoglobin 12.2, platelet count 124. Sodium 138, potassium 4.3, BUN 19, creatinine 1.1. Troponin 0.012. Cardiology consultation was requested because of a brief episode of bradycardia. Complete history was taken from the patient to is alert and oriented 3. According to the patient, he experienced a fall on Saturday. He states that he was just getting back to his apartment, had to step up onto a curb when the curb caught the edge of his toe and he fell forward. He does have considerable ecchymosis in the orbital area of his eyes, and on his forehead as well as some abrasions on his hands. He denies at that time passing out, no dizziness or lightheadedness, no palpitations. Overall the patient states that he does not usually get dizzy, but on a rare occasion notices mild dizziness. Upon review of the patient's home medications, it appears that he had been taking Tenormin and Inderal simultaneously. He was on Inderal 60 daily and Tenormin 25 mg daily. Overall the patient's heart rate has been maintained in the 50s to 60s. Past Medical History Past Medical History: Diabetes Mellitus, Eye Disorder, Hyperlipidemia, Hypertension, Osteoarthritis (OA) Additional Past Medical History / Comment(s): parkinsons History of Any Multi-Drug Resistant Organisms: None Reported Past Surgical History: Hernia Repair Past Anesthesia/Blood Transfusion Reactions: No Reported Reaction Smoking Status: Former smoker - Past Family History Mother Family Medical History: No Reported History Additional Family Medical History / Comment(s): " old age" Father Additional Family Medical History / Comment(s): "coronary thrombosis Medications and Allergies Home Medications Medication Instructions Recorded Confirmed Type Acetaminophen [Tylenol] 325 mg PO Q4H 02/19/18 02/19/18 History Alendronate Sodium [Fosamax] 70 mg PO Q7DAYS 02/19/18 02/19/18 History Aspirin [Adult Low Dose Aspirin EC] 81 mg PO DAILY 02/19/18 02/19/18 History Atenolol [Tenormin] 25 mg PO DAILY 02/19/18 02/19/18 History Cholecalciferol [Vitamin D3] 1,000 unit PO DAILY 02/19/18 02/19/18 History Latanoprost [Xalatan 0.005%] 1 drop BOTH EYES HS 02/19/18 02/19/18 History Levothyroxine Sodium [Synthroid] 50 mcg PO DAILY 02/19/18 02/19/18 History Lisinopril-Hctz 10-12.5 mg 1 tab PO DAILY 02/19/18 02/19/18 History [Zestoretic 10-12.5] Pravastatin Sodium [Pravachol] 40 mg PO HS 02/19/18 02/19/18 History Propranolol HCl [Inderal] 60 mg PO DAILY 02/19/18 02/19/18 History glipiZIDE [Glucotrol] 5 mg PO DAILY 02/19/18 02/19/18 History metFORMIN HCL [Glucophage] 500 mg PO DAILY 02/19/18 02/19/18 History Allergies Allergy/AdvReac Type Severity Reaction Status Date / Time No Known Allergies Allergy Verified 02/19/18 13:40 Physical Exam Vitals: Vital Signs Temp Pulse Pulse Resp BP BP Pulse Ox 02/20/18 11:15 58 L 16 163/70 96 02/20/18 08:35 98.1 F 66 16 132/61 97 02/20/18 03:07 98.6 F 66 15 130/62 91 L 02/20/18 00:24 98.3 F 54 L 16 113/59 90 L 02/19/18 20:54 97.2 F L 67 16 148/63 92 L 02/19/18 16:54 97.9 F 02/19/18 16:00 98.1 F 65 95 18 137/76 157/83 94 L 02/19/18 15:30 59 L 16 153/77 97 02/19/18 15:00 67 14 100 02/19/18 14:44 68 02/19/18 14:30 689 H 16 151/76 97 02/19/18 13:40 151/76 02/19/18 13:30 69 8 L 163/78 96 02/19/18 13:20 67 18 163/78 94 L 02/19/18 13:10 68 14 163/78 95 02/19/18 13:03 94 L Intake and Output 02/19/18 02/20/18 02/20/18 22:59 06:59 14:59 Intake Total 800 240 Output Total 400 Balance -400 800 240 Intake: Intake, IV Titration 800 Amount Sodium Chloride 0.9% 1, 800 000 ml @ 100 mls/hr IV . Q10H [facility] Rx#:[id number] Oral 240 Output: Urine 400 Other: Voiding Method Toilet Toilet Toilet Bedpan Urinal Urinal # Voids 1 2 Weight 82.554 kg 81.2 kg PHYSICAL EXAMINATION: GENERAL:87-year-old gentleman in no acute distress at the time of my examination HEENT: Head is , normocephalic. Pupils equal, round. Sclera anicteric. Conjunctiva are clear. orbital ecchymosis noted as well as abrasions to the nose and forehead. Mucous membranes of the mouth are moist. Neck is supple. There is no elevated jugular venous pressure.no carotid bruit is heard. HEART EXAMINATION: [Heart S1, S2 normal. No murmur or gallop heard.] CHEST EXAMINATION:[ Lungs are clear to auscultation and precussion. No chest wall tenderness is noted on palpation or with deep breathing.] ABDOMEN: [ Soft, nontender. Bowel sounds are heard. No organomegaly noted]. EXTREMITIES:[ 2+ peripheral pulses with no evidence of peripheral edema and no calf tenderness noted]. NEUROLOGIC [patient is awake, alert and oriented X3.] . Results 02/20/18 05:24 02/20/18 05:24 Cardiac Enzymes 02/19/18 02/19/18 02/20/18 Range/Units 13:22 13:22 05:24 AST 17 15 L (17-59) U/L CK-MB (CK-2) 1.8 (0.0-2.4) ng/mL Troponin I <0.012 (0.000-0.034) ng/mL Coagulation 02/19/18 Range/Units 13:22 PT 10.1 (9.0-12.0) sec APTT 22.5 (22.0-30.0) sec Lipids 02/20/18 Range/Units 05:24 Triglycerides 113 (<150) mg/dL Cholesterol 101 (<200) mg/dL HDL Cholesterol 38 L (40-60) mg/dL CBC 02/19/18 02/20/18 Range/Units 13:22 05:24 WBC 5.9 4.2 (3.8-10.6) k/uL RBC 4.31 4.14 L (4.30-5.90) m/uL Hgb 13.4 12.2 L (13.0-17.5) gm/dL Hct 39.1 38.2 L (39.0-53.0) % Plt Count 126 L 124 L (150-450) k/uL Comprehensive Metabolic Panel 02/19/18 02/20/18 Range/Units 13:22 05:24 Sodium 139 138 (137-145) mmol/L Potassium 4.0 4.3 (3.5-5.1) mmol/L Chloride 104 105 (98-107) mmol/L Carbon Dioxide 27 26 (22-30) mmol/L BUN 24 H 19 (9-20) mg/dL Creatinine 1.16 1.16 (0.66-1.25) mg/dL Glucose 121 H 178 H (74-99) mg/dL Calcium 9.2 8.6 (8.4-10.2) mg/dL AST 17 15 L (17-59) U/L ALT 20 L 20 L (21-72) U/L Alkaline Phosphatase 39 31 L (38-126) U/L Total Protein 6.3 5.6 L (6.3-8.2) g/dL Albumin 3.8 3.3 L (3.5-5.0) g/dL Current Medications Generic Name Dose Route Start Last Admin Trade Name Freq PRN Reason Stop Dose Admin Acetaminophen 325 mg 02/19/18 16:15 Tylenol Tab PO Q4H PRN Mild Pain Aspirin 81 mg 02/21/18 09:00 Aspirin PO DAILY [facility] Atenolol 25 mg 02/20/18 09:00 02/20/18 09:20 Tenormin PO 25 mg DAILY [facility] Administration Cholecalciferol 1,000 unit 02/20/18 09:00 02/20/18 09:20 Vitamin D3 PO 1,000 unit DAILY [facility] Administration Enoxaparin Sodium 40 mg 02/20/18 09:00 02/20/18 09:20 Lovenox SQ 40 mg DAILY [facility] Administration Glipizide 5 mg 02/20/18 09:00 02/20/18 09:20 Glucotrol PO 5 mg DAILY [facility] Administration Lisinopril/HCTZ 1 each 02/20/18 09:00 02/20/18 09:20 Zestoretic 10-12.5 PO 1 each DAILY [facility] Administration Sodium Chloride 1,000 mls @ 100 mls/hr 02/19/18 15:00 02/19/18 20:57 Saline 0.9% IV 100 mls/hr .Q10H [facility] Administration Latanoprost 1 drops 02/19/18 21:00 02/19/18 20:56 Xalatan 0.005% BOTH EYES 1 drops HS [facility] Administration Levothyroxine Sodium 50 mcg 02/20/18 06:30 02/20/18 06:04 Synthroid PO 50 mcg DAILY@0630 [facility] Administration Metformin HCl 500 mg 02/20/18 09:00 02/20/18 09:20 Glucophage PO 500 mg DAILY [facility] Administration Alendronate Sodium [ 70 mg 02/26/18 09:00 Fosamax] 70 Mg PO Q7DAYS [facility] Pantoprazole Sodium 40 mg 02/20/18 07:30 02/20/18 06:05 Protonix PO 40 mg [id number] [facility] Administration Pravastatin Sodium 40 mg 02/19/18 21:00 02/19/18 20:56 Pravachol PO 40 mg HS [facility] Administration Intake and Output 02/19/18 02/20/18 02/20/18 22:59 06:59 14:59 Intake Total 800 240 Output Total 400 Balance -400 800 240 Intake: Intake, IV Titration 800 Amount Sodium Chloride 0.9% 1, 800 000 ml @ 100 mls/hr IV . Q10H [facility] Rx#:[id number] Oral 240 Output: Urine 400 Other: Voiding Method Toilet Toilet Toilet Bedpan Urinal Urinal # Voids 1 2 Weight 82.554 kg 81.2 kg 02/20/18 05:24 02/20/18 05:24 EKG Interpretations (text) EKG shows normal sinus rhythm with no acute changes. Assessment and Plan Plan: assessment and plan #1 slurring of speech and delayed response, rule out CVA #2 recent fall with head trauma, no evidence of syncope #3 diabetes #4 hypertension #5 hyperlipidemia #6 osteoarthritis #7 Parkinson's Plan We will discontinue the Inderal and continue the patient's atenolol. We will also check a free T4 and TSH level, obtain echocardiogram with Doppler study. Further recommendations to follow. DNP note has been reviewed, I agree with a documented findings and plan of care. Patient was seen and examined.
[2018-02-20 16:11] LABS: Glucose,Whole Blood 113 mg/dL (75-99)
[2018-02-20] MEDS: SODIUM CHLORIDE 0.9% 1,000 ML IV SCH (18:05)
--- NOTE | 2018-02-20 18:06 | P.CNNES ---
History of Present Illness Consult date: 02/20/18 Requesting physician: Bam Fried Reason for Consult: TIA History of Present Illness: Patient is a pleasant 87-year-old male who is being evaluated by the neurology service on 02/20/2018 per the request of Dr. Fried for TIA. Patient 's son is at the bedside and providing patient history. Patient had fallen this past Saturday and hit his head. Patient states he was getting out of a car and did not lift his foot high enough and caught his toe on the curb. Patient has bruising to bilateral eyes and forehead. Family noticed patient was having slurred speech and difficulty finding words. Patient was brought to [facility] for evaluation. Symptoms lasted a few hours. Symptoms have improved significantly once patient arrived at the hospital. Patient has not had any return of symptoms since admission. Patient does have history of Parkinson's, diabetes mellitus, hypertension, osteoarthritis, and hyperlipidemia. CT on admission showed no acute intracranial process. CT did show age-related atrophy and CTA showed no large vessel vascular occlusion, focal aneurysm or dissection of the head or neck. Patient had episode of bradycardia and cardiology was consulted. Medication adjustments were made. Vital signs on admission showed temperature 97.8, pulse rate 72, respirations 18 , blood pressure 148/82, and oxygen saturation 97% on room air. Lipid panel was within normal limits except for low HDL of 38. Patient denies any lateralizing weakness, numbness or tingling, or severe headache. Patient and family report patient had episode like this in the past and was placed on low- dose aspirin. At the time of my evaluation, patient is sitting up in bed eating dinner visiting with his son. Patient does not appear to be in any acute distress. Review of Systems REVIEW OF SYSTEMS: Otherwise unremarkable and noncontributory. Past Medical History Past Medical History: Diabetes Mellitus, Eye Disorder, Hyperlipidemia, Hypertension, Osteoarthritis (OA) Additional Past Medical History / Comment(s): parkinsons History of Any Multi-Drug Resistant Organisms: None Reported Past Surgical History: Hernia Repair Past Anesthesia/Blood Transfusion Reactions: No Reported Reaction Smoking Status: Former smoker - Past Family History Mother Family Medical History: No Reported History Additional Family Medical History / Comment(s): " old age" Father Additional Family Medical History / Comment(s): "coronary thrombosis Medications and Allergies Home Medications Medication Instructions Recorded Confirmed Type Acetaminophen [Tylenol] 325 mg PO Q4H 02/19/18 02/19/18 History Alendronate Sodium [Fosamax] 70 mg PO Q7DAYS 02/19/18 02/19/18 History Aspirin [Adult Low Dose Aspirin EC] 81 mg PO DAILY 02/19/18 02/19/18 History Atenolol [Tenormin] 25 mg PO DAILY 02/19/18 02/19/18 History Cholecalciferol [Vitamin D3] 1,000 unit PO DAILY 02/19/18 02/19/18 History Latanoprost [Xalatan 0.005%] 1 drop BOTH EYES HS 02/19/18 02/19/18 History Levothyroxine Sodium [Synthroid] 50 mcg PO DAILY 02/19/18 02/19/18 History Lisinopril-Hctz 10-12.5 mg 1 tab PO DAILY 02/19/18 02/19/18 History [Zestoretic 10-12.5] Pravastatin Sodium [Pravachol] 40 mg PO HS 02/19/18 02/19/18 History Propranolol HCl [Inderal] 60 mg PO DAILY 02/19/18 02/19/18 History glipiZIDE [Glucotrol] 5 mg PO DAILY 02/19/18 02/19/18 History metFORMIN HCL [Glucophage] 500 mg PO DAILY 02/19/18 02/19/18 History Allergies Allergy/AdvReac Type Severity Reaction Status Date / Time No Known Allergies Allergy Verified 02/19/18 13:40 Physical Examination - Vital Signs Vital Signs: Vital Signs Temp Pulse Resp BP Pulse Ox 02/20/18 16:27 61 14 02/20/18 16:00 98.1 F 61 14 145/68 96 02/20/18 15:00 16 02/20/18 11:15 58 L 16 163/70 96 02/20/18 08:35 98.1 F 66 16 132/61 97 02/20/18 03:07 98.6 F 66 15 130/62 91 L 02/20/18 00:24 98.3 F 54 L 16 113/59 90 L 02/19/18 20:54 97.2 F L 67 16 148/63 92 L Intake and Output 02/20/18 02/20/18 02/20/18 06:59 14:59 22:59 Intake Total 800 1280 Output Total 250 Balance 800 1030 Intake: Intake, IV Titration 800 800 Amount Sodium Chloride 0.9% 1, 800 800 000 ml @ 100 mls/hr IV . Q10H [facility] Rx#:[id number] Oral 480 Output: Urine 250 Other: Voiding Method Toilet Toilet Toilet Urinal Urinal Urinal # Voids 2 Weight 81.2 kg PHYSICAL EXAM: GENERAL APPEARANCE: Patient is a well-developed, male who appears to be in no acute distress. HEENT: Normocephalic, bruising around bilateral eyes and forehead due to recent fall, no facial asymmetry is seen. Neck is supple with no masses felt. CARDIOVASCULAR: Regular rate and rhythm. ABDOMEN: Nontender, nondistended. EXTREMITIES: Show no edema or clubbing. NEUROLOGICAL EXAM: Patient is awake, alert, and oriented 3. Speech and language are normal. Strength is full in all 4 extremities. Sensory exam is normal to light touch in all 4 extremities. No pronator drift seen. No facial asymmetry seen on cranial nerve testing. No tremors or seizure-like activity noted. Results - Laboratory Findings CBC and BMP: 02/20/18 05:24 02/20/18 05:24 Abnormal Lab Findings: Abnormal Labs 02/19/18 02/19/18 02/19/18 13:22 13:22 14:10 RBC Hgb Hct Plt Count 126 L Lymphocytes # BUN 24 H Glucose 121 H POC Glucose (mg/dL) AST ALT 20 L Alkaline Phosphatase Total Protein Albumin HDL Cholesterol Urine Glucose (UA) 3+ H Ur Leukocyte Esterase Small H Urine Mucus Rare H 02/19/18 02/19/18 02/20/18 17:23 21:38 05:24 RBC Hgb Hct Plt Count Lymphocytes # BUN Glucose 178 H POC Glucose (mg/dL) 114 H 175 H AST 15 L ALT 20 L Alkaline Phosphatase 31 L Total Protein 5.6 L Albumin 3.3 L HDL Cholesterol 38 L Urine Glucose (UA) Ur Leukocyte Esterase Urine Mucus 02/20/18 02/20/18 02/20/18 05:24 05:54 12:03 RBC 4.14 L Hgb 12.2 L Hct 38.2 L Plt Count 124 L Lymphocytes # 0.9 L BUN Glucose POC Glucose (mg/dL) 185 H 161 H AST ALT Alkaline Phosphatase Total Protein Albumin HDL Cholesterol Urine Glucose (UA) Ur Leukocyte Esterase Urine Mucus 02/20/18 16:09 RBC Hgb Hct Plt Count Lymphocytes # BUN Glucose POC Glucose (mg/dL) 113 H AST ALT Alkaline Phosphatase Total Protein Albumin HDL Cholesterol Urine Glucose (UA) Ur Leukocyte Esterase Urine Mucus Assessment and Plan Plan: Impression: 1. Transient ischemic attack 2. Dysarthria, resolved 3. History of TIA 4. Episode of bradycardia 5. Recent fall with head trauma 6. History of Parkinson's 7. Diabetes mellitus 8. Hypertension Recommendation: It does appear patient had a transient ischemic attack with transient episode of dysarthria and word finding difficulty. These symptoms have since resolved. Patient denies any further symptoms since admission. Patient did experience recent fall with head trauma. Computed tomography scan of the brain did not show any acute process. CTA did not show any evidence of abnormality. Recent lipid panel was within normal limits except for low HDL of 38. I will order an MRI of the brain due to recurrence of symptoms and recent head trauma. I will order an EEG, serum homocystine level, and carotid Doppler. I will switch his aspirin to Plavix 75 mg by mouth daily. As for patient's bradycardia, cardiology's been consulted. I recommend PT OT to evaluate and treat. Continue neurological checks. Patient has history of Parkinson's and follows with Dr. Mendez. I will continue to follow with you. Further recommendations following testing. Thank you for allowing me to participate in the care of your patient. Feel free to call with any questions or concerns. I performed an examination of the patient and discussed the management with the CHARITY FUNDRAISER. I have reviewed the CHARITY FUNDRAISER notes and agree with the findings and plan of care.
--- NOTE | 2018-02-20 19:46 | ECHOF ---
Referral Reason:TIA MEASUREMENTS -------- HEIGHT: 172.7 cm WEIGHT: 82.6 kg BP: IVSd: 1.5 cm (0.6 - 1.1) LVIDd: 3.4 cm (3.9 - 5.3) LVPWd: 1.5 cm (0.6 - 1.1) IVSs: 1.5 cm LVIDs: 2.2 cm LVPWs: 1.4 cm LA Diam: 3.2 cm (2.7 - 3.8) RVIDd: 2.8 cm (< 3.3) Ao Diam: 3.9 cm (2.0 - 3.7) LA Diam: 3.1 cm (2.7 - 3.8) AV Cusp: 2.0 cm (1.5 - 2.6) EPSS: 0.9 cm MV E Dell: 0.47 m/s MV DecT: 226 ms MV A Dell: 0.63 m/s MV E/A Ratio: 0.76 RAP: 5.00 mmHg RVSP: 14.41 mmHg MV EF SLOPE: 83.59 mm/s (70 - 150) MV EXCURSION: 16.66 mm (> 18.000) FINDINGS -------- Sinus rhythm. This was a technically adequate study. The left ventricular size is normal. There is moderate concentric left ventricular hypertrophy. O verall left ventricular systolic function is low-normal with, an EF between 50 - 55 %. The right ventricle is normal in size. The left atrial size is normal. The right atrial size is normal. The aortic valve is trileaflet, and appears structurally normal. No aortic stenosis or regurgitation. Mild mitral annular calcification present. Mild mitral regurgitation is present. Mild tricuspid regurgitation present. There is no evidence of pulmonary hypertension. The right v entricular systolic pressure, as measured by Doppler, is 14.41mmHg. There is no pulmonic regurgitation present. The aortic root size is normal. There is no pericardial effusion. CONCLUSIONS -------- 1. The left ventricular size is normal. 2. There is moderate concentric left ventricular hypertrophy. 3. Overall left ventricular systolic function is low-normal with, an EF between 50 - 55 %. 4. The right ventricle is normal in size. 5. The right atrial size is normal. 6. The aortic valve is trileaflet, and appears structurally normal. No aortic stenosis or regurgitati on. 7. Mild mitral annular calcification present. 8. Mild mitral regurgitation is present. 9. Mild tricuspid regurgitation present. 10. There is no evidence of pulmonary hypertension. 11. The right ventricular systolic pressure, as measured by Doppler, is 14.41mmHg. 12. There is no pulmonic regurgitation present. 13. The aortic root size is normal. 14. There is no pericardial effusion. FINAL INSPECTOR [employer]: Luba Foster RDCS
[2018-02-20 21:08] LABS: Glucose,Whole Blood 84 mg/dL (75-99)
[2018-02-20] MEDS: LATANOPROST 0.005% OPHTH DROPS 2.5 ML BTL BOTH EYES SCH (21:36)
[2018-02-20] MEDS: PRAVASTATIN SODIUM 40 MG TAB PO SCH (21:37)
[2018-02-21 06:19] LABS: Glucose,Whole Blood 167 mg/dL (75-99)
[2018-02-21] MEDS: LEVOTHYROXINE 50 MCG TAB PO SCH (06:28)
[2018-02-21] MEDS: PANTOPRAZOLE 40 MG TABLET PO SCH (06:28)
[2018-02-21] MEDS: SODIUM CHLORIDE 0.9% 1,000 ML IV SCH ×2 (06:28→08:12)
[2018-02-21 07:14] LABS: Basophils % (A) 1 %; Eosinophils # (A) 0.1 k/uL (0-0.7); Eosinophils % (A) 3 %; HCT 38.4 % (39.0-53.0); HGB 13.1 gm/dL (13.0-17.5); Lymphocytes % (A) 18 %; MCH 31.3 pg (25.0-35.0); MCHC 34.2 g/dL (31.0-37.0); MCV 91.6 fL (80.0-100.0); Mean Platelet Volume 7.3; Monocytes # (A) 0.3 k/uL (0-1.0); Monocytes % (A) 5 %; Neutrophils % (A) 73 %; Platelet Count 114 k/uL (150-450); RBC 4.19 m/uL (4.30-5.90); RDW 13.8 % (11.5-15.5); WBC 5.4 k/uL (3.8-10.6)
[2018-02-21 07:30] LABS: Albumin 3.5 g/dL (3.5-5.0); Calcium 8.9 mg/dL (8.4-10.2); Potassium 4.2 mmol/L (3.5-5.1); Total Bilirubin 0.7 mg/dL (0.2-1.3); Total Protein 5.9 g/dL (6.3-8.2)
[2018-02-21] MEDS: ASPIRIN 81 MG PO SCH (08:12)
[2018-02-21] MEDS: CHOLECALCIFEROL 1,000 UNIT TAB PO SCH (08:12)
[2018-02-21] MEDS: glipiZIDE 5 MG TAB PO SCH (08:12)
[2018-02-21] MEDS: metFORMIN 500 MG TAB PO SCH (08:12)
[2018-02-21] MEDS: ATENOLOL 25 MG TAB PO SCH (08:12)
[2018-02-21] MEDS: CLOPIDOGREL 75 MG TAB PO SCH (08:12)
[2018-02-21] MEDS: LISINOPRIL-HCTZ 10-12.5 MG 1 EACH TAB PO SCH (08:13)
[2018-02-21] MEDS: ENOXAPARIN 40 MG/0.4 ML SYRINGE SQ SCH (08:13)
[2018-02-21 11:24] LABS: Glucose,Whole Blood 136 mg/dL (75-99)
--- NOTE | 2018-02-21 11:34 | MR ---
EXAMINATION TYPE: MR brain wo con DATE OF EXAM: 02/21/2018 COMPARISON: 02/19/2018 CT brain HISTORY: TIA CONTRAST: Performed utilizing 0 mL intravenous Gadavist gadolinium contrast. TECHNIQUE: Multiplanar, multiecho imaging on a 3.0 Leilani magnet is performed through the brain. Stud y is performed within 24 hours of arrival to the hospital. The craniovertebral junction is normal. The pituitary is normal. Diffusion-weighted imaging is performed. No abnormal hyperintensity is present to suggest an acute i ntracranial infarct or acute ischemic change. There are scattered punctate areas of hyperintensity on T2 and Inversion Recovery weighted sequences which are non-specific but can be related to microvascular ischemic changes. Differential diagnosis c ould include vasculitis and multiple sclerosis. Ventricles and sulci are prominent for the patient age. IMPRESSIONS: 1. Chronic appearing periventricular white matter ischemic changes with atrophy.
--- NOTE | 2018-02-21 11:57 | P.PN ---
Subjective Progress Note Date: 02/21/18 Principal diagnosis: TIA/stroke This is a pleasant 87-year-old gentleman who was admitted to the hospital with an episode of slurred speech. He was bradycardic when he was admitted to the hospital. Beside that he does have diabetes, hypertension, and dyslipidemia and Parkinson disease. I'll follow-up with him today, 02/21/2018, he is feeling slightly better. We did stop the Inderal The heart rate seems to be better overall. The blood pressure is slightly elevated but he is diagnosed with TIA/stroke. From the cardiovascular standpoint overview, the patient can be discharged home. Objective - Vital Signs Vital signs: Vital Signs Temp 97.7 F 02/21/18 08:00 Pulse 78 02/21/18 08:00 Resp 16 02/21/18 11:44 BP 159/74 02/21/18 08:00 Pulse Ox 94 L 02/21/18 08:00 Intake & Output 02/20/18 02/21/18 02/21/18 18:59 06:59 18:59 Intake Total 1640 240 Output Total 250 875 Balance 1390 -875 240 Weight 83.2 kg Intake: Intake, IV Titration 800 Amount Sodium Chloride 0.9% 1, 800 000 ml @ 100 mls/hr IV . Q10H [facility] Rx#:[id number] Oral 840 240 Output: Urine 250 875 Other: Voiding Method Toilet Toilet Toilet Urinal Urinal Urinal # Voids 2 - Constitutional General appearance: Present: no acute distress - Respiratory Respiratory: bilateral: diminished - Cardiovascular Heart sounds: normal: S1, S2 - Labs CBC & Chem 7: 02/21/18 06:39 02/21/18 06:39 Labs: Abnormal Lab Results - Last 24 Hours (Table) 02/20/18 02/20/18 02/21/18 Range/Units 12:03 16:09 06:08 RBC (4.30-5.90) m/uL Hct (39.0-53.0) % Plt Count (150-450) k/uL Chloride (98-107) mmol/L BUN (9-20) mg/dL Glucose (74-99) mg/dL POC Glucose (mg/dL) 161 H 113 H 167 H (75-99) mg/dL ALT (21-72) U/L Alkaline Phosphatase (38-126) U/L Total Protein (6.3-8.2) g/dL 02/21/18 02/21/18 02/21/18 Range/Units 06:39 06:39 11:23 RBC 4.19 L (4.30-5.90) m/uL Hct 38.4 L (39.0-53.0) % Plt Count 114 L (150-450) k/uL Chloride 108 H (98-107) mmol/L BUN 24 H (9-20) mg/dL Glucose 166 H (74-99) mg/dL POC Glucose (mg/dL) 136 H (75-99) mg/dL ALT 19 L (21-72) U/L Alkaline Phosphatase 33 L (38-126) U/L Total Protein 5.9 L (6.3-8.2) g/dL Microbiology - Last 24 Hours (Table) 02/20/18 06:56 Urine Culture - Preliminary Urine,Clean Catch Assessment and Plan Assessment: Assessment #1 an episode of TIA/CVA #2 bradycardia which has improved #3 multiple comorbid conditions Plan #1 continue the current medical regimen #2 from the cardiac standpoint, the patient can be discharged home.
--- NOTE | 2018-02-21 13:58 | P.PN ---
Subjective Progress Note Date: 02/21/18 This is an 87-year-old male patient that presented to the emergency room with complaints of slurred speech and trouble finding his words. Patient's daughters currently at bedside. Per family patient on Saturday and hit his head. Patient was brought into the emergency room and scans were completed and patient was later discharged. Per patient's family symptoms started this afternoon when daughter went over to check on her father. Since then symptoms have improved significantly. Patient has a known past medical history of Parkinson's, diabetes mellitus, hyperlipidemia, hypertension and osteoarthritis. CT of brain completed showing no acute intracranial process. Mild cerebral volume loss, likely on the basis of age-related atrophy is seen on prior. CTA completed showing not no large vessel vascular occlusion, focal aneurysm or dissection of the head or neck. Chest x-ray completed showing no acute cardiopulmonary process. EKG completed showing normal sinus rhythm. At this time patient is resting comfortably in bed. Bruising noted to bilateral eyes and forehead. No signs of facial droop or slurred speech at this time patient is delayed in response. Patient has equal strength throughout. Memory appears to be intact. Patient denies chest pain or shortness of breath. Patient denies any urinary burning or frequency. Neurology services have been consulted. Patient started on aspirin 325. 2-D echo has been ordered. 02/20/2018 patient reports that his speech has shown improvement. Awaiting neurology and cardiology evaluation. In telemetry room heart rate was reported down into the 40s. He is on 2 beta blockers the atenolol and Inderal. Patient denies any weakness on one side of the body. Denies any chest pain or shortness of breath. Denies any nausea vomiting bowel movement changes or urinary symptoms. 02/21/2018 patient is alert and orientated to 3 no issues with his speech. He underwent MRI of the brain no acute changes. Echo which showed an EF of 50-55% . Cardiology evaluated patient regarding bradycardia and the Inderal was discontinued and has had no further episodes of bradycardia. Awaiting EEG to be completed. At this time patient is on aspirin 81 mg daily plus Plavix. And his been followed by neurology. No arrhythmias noted on telemetry. He is complaining of some urinary frequency. Urinalysis with culture will be ordered. IV fluids discontinued. And drinking appropriately. Objective - Vital Signs Vital signs: Vital Signs Temp 98.1 F 02/21/18 11:54 Pulse 63 02/21/18 11:54 Resp 18 02/21/18 11:54 BP 148/74 02/21/18 11:54 Pulse Ox 95 02/21/18 11:54 Intake & Output 02/20/18 02/21/18 02/21/18 18:59 06:59 18:59 Intake Total 1640 480 Output Total 250 875 Balance 1390 -875 480 Weight 83.2 kg Intake: Intake, IV Titration 800 Amount Sodium Chloride 0.9% 1, 800 000 ml @ 100 mls/hr IV . Q10H [facility] Rx#:[id number] Oral 840 480 Output: Urine 250 875 Other: Voiding Method Toilet Toilet Toilet Urinal Urinal Urinal # Voids 2 - Exam Head normocephalic. Face bruising around her eyes abrasion on forehead and nose from previous fall Neck supple Lungs clear to auscultation bilaterally no wheezing or crackles Heart regular rate and rhythm S1-S2, no rub or gallop Abdomen is soft nontender nondistended positive bowel sounds no hepatosplenomegaly Extremities no edema Neuro alert and orientated to 3. No slurred speech facial droop - Labs CBC & Chem 7: 02/21/18 06:39 02/21/18 06:39 Labs: Abnormal Lab Results - Last 24 Hours (Table) 02/20/18 02/21/18 02/21/18 Range/Units 16:09 06:08 06:39 RBC 4.19 L (4.30-5.90) m/uL Hct 38.4 L (39.0-53.0) % Plt Count 114 L (150-450) k/uL Chloride (98-107) mmol/L BUN (9-20) mg/dL Glucose (74-99) mg/dL POC Glucose (mg/dL) 113 H 167 H (75-99) mg/dL ALT (21-72) U/L Alkaline Phosphatase (38-126) U/L Total Protein (6.3-8.2) g/dL 02/21/18 02/21/18 Range/Units 06:39 11:23 RBC (4.30-5.90) m/uL Hct (39.0-53.0) % Plt Count (150-450) k/uL Chloride 108 H (98-107) mmol/L BUN 24 H (9-20) mg/dL Glucose 166 H (74-99) mg/dL POC Glucose (mg/dL) 136 H (75-99) mg/dL ALT 19 L (21-72) U/L Alkaline Phosphatase 33 L (38-126) U/L Total Protein 5.9 L (6.3-8.2) g/dL Microbiology - Last 24 Hours (Table) 02/20/18 06:56 Urine Culture - Preliminary Urine,Clean Catch Assessment and Plan Assessment: 1. Slurred speech and delayed response secondary to TIA. Head CT completed showing no acute intracranial process. Mild cerebral volume loss, likely on the basis of age-related atrophy is seen on the prior. CTA completed showing no large vessel vascular occlusion, focal aneurysm or dissection of the head or neck. EKG showing normal sinus rythym Neurology services have been consulted. Patient currently on aspirin 81 mg daily plus Plavix 75 mg daily. Continue statin. PT and OT services consulted. Echo shows an EF of 50-55% Continue telemetry monitoring. No evidence of atrial fibrillation. Patient still needs EEG completed today. 2. Recent fall with trauma to head. Patient reports that he fell on Saturday. Patient does have bruising to bilateral eyes and abrasion to forehead 3. History of Parkinson's. Patient states he follows with Dr. Mendez 4. History of diabetes mellitus. Home medications resumed 5. History of hyperlipidemia. Pravastatin resumed 6. History of essential hypertension. Home medications resumed 7. History of osteoarthritis 8. Urinary frequency. Repeat urinalysis with culture. Discontinue IV fluids. 9. Sinus bradycardia heart rate into the 40s noted on telemetry. Patient is on 2 beta blockers atenolol and Inderal. Cardiology has discontinue the Inderal. Heart rate has improved. DVT prophylaxis Lovenox. GI prophylaxis Protonix Anticipate discharge home with home care possibly tomorrow I performed an examination of the patient and discussed their management with the physician Engineering Systems Analyst. I have reviewed the Physician Engineering Systems Analyst's notes and agree with the documented findings and plan of care
[2018-02-21 16:43] LABS: Glucose,Whole Blood 113 mg/dL (75-99)
[2018-02-21 18:37] LABS: Appearance,Urine Clear (Clear); Bacteria,Urine Rare /hpf; Bilirubin,Urine Negative (Negative); Blood,Urine Negative (Negative); Color,Urine Light Yellow; Glucose,Urine (UA) Trace (Negative); Ketones,Urine Negative (Negative); Leukocyte Esterase,Urine Moderate (Negative); Mucus,Urine Rare /hpf; Nitrite,Urine Negative (Negative); Protein,Urine Negative (Negative); RBC,Urine 1 /hpf (0-5); Urobilinogen,Urine <2.0 mg/dL (<2.0)
[2018-02-21] MEDS: LATANOPROST 0.005% OPHTH DROPS 2.5 ML BTL BOTH EYES SCH (19:38)
[2018-02-21] MEDS: PRAVASTATIN SODIUM 40 MG TAB PO SCH (19:39)
[2018-02-21 20:50] LABS: Glucose,Whole Blood 148 mg/dL (75-99)
--- NOTE | 2018-02-21 22:21 | P.PN ---
Subjective Progress Note Date: 02/21/18 Patient is a pleasant 87-year-old male who is being followed by the neurology service for TIA. Patient had slurred speech and word finding difficulties in the home setting. Patient was brought to for evaluation. CT of the brain showed no acute intracranial process. MRI of the brain showed no evidence of acute infarct. Patient's symptoms have resolved and have not returned since admission. CTA showed no large vessel vascular occlusion, focal aneurysm or dissection of the head or neck. Patient had bradycardic episode and cardiology was consulted. Patient has bruising to the face related to recent fall. At the time of my evaluation, patient's resting comfortably in bed and is eating his dinner. Patient does not appear to be in any acute distress. Objective - Vital Signs Vital signs: Vital Signs Temp 97.8 F 02/21/18 19:46 Pulse 61 02/21/18 19:46 Resp 14 02/21/18 19:46 BP 144/72 02/21/18 19:46 Pulse Ox 96 02/21/18 19:46 Intake & Output 02/21/18 02/21/18 02/22/18 06:59 18:59 06:59 Intake Total 720 Output Total 875 700 Balance -875 20 Weight 83.2 kg Intake: Oral 720 Output: Urine 875 700 Other: Voiding Method Toilet Toilet Toilet Urinal Urinal Urinal # Voids 2 - Exam PHYSICAL EXAM: GENERAL APPEARANCE: Patient is a well-developed, male who appears to be in no acute distress. HEENT: Normocephalic, atraumatic, no facial asymmetry is seen. Neck is supple with no masses felt. CARDIOVASCULAR: Regular rate and rhythm. ABDOMEN: Nontender, nondistended. EXTREMITIES: Show no edema or clubbing. NEUROLOGICAL EXAM: Patient is awake, alert, and oriented 3. Speech and language are normal. Strength is full in all 4 extremities. Sensory exam is normal to light touch in all 4 extremities. No pronator drift is seen. No facial asymmetry is seen on cranial nerve testing. No tremors or seizure-like activity noted. - Labs CBC & Chem 7: 02/21/18 06:39 02/21/18 06:39 Labs: Abnormal Lab Results - Last 24 Hours (Table) 02/21/18 02/21/18 02/21/18 Range/Units 06:08 06:39 06:39 RBC 4.19 L (4.30-5.90) m/uL Hct 38.4 L (39.0-53.0) % Plt Count 114 L (150-450) k/uL Chloride (98-107) mmol/L BUN (9-20) mg/dL Glucose (74-99) mg/dL POC Glucose (mg/dL) 167 H (75-99) mg/dL ALT (21-72) U/L Alkaline Phosphatase (38-126) U/L Total Protein (6.3-8.2) g/dL Homocysteine 16.68 H (4.00-14.00) umol/L Urine Glucose (UA) (Negative) Ur Leukocyte Esterase (Negative) Urine WBC (0-5) /hpf Urine Bacteria (None) /hpf Urine Mucus (None) /hpf 02/21/18 02/21/18 02/21/18 Range/Units 06:39 11:23 16:41 RBC (4.30-5.90) m/uL Hct (39.0-53.0) % Plt Count (150-450) k/uL Chloride 108 H (98-107) mmol/L BUN 24 H (9-20) mg/dL Glucose 166 H (74-99) mg/dL POC Glucose (mg/dL) 136 H 113 H (75-99) mg/dL ALT 19 L (21-72) U/L Alkaline Phosphatase 33 L (38-126) U/L Total Protein 5.9 L (6.3-8.2) g/dL Homocysteine (4.00-14.00) umol/L Urine Glucose (UA) (Negative) Ur Leukocyte Esterase (Negative) Urine WBC (0-5) /hpf Urine Bacteria (None) /hpf Urine Mucus (None) /hpf 02/21/18 02/21/18 Range/Units 18:28 20:46 RBC (4.30-5.90) m/uL Hct (39.0-53.0) % Plt Count (150-450) k/uL Chloride (98-107) mmol/L BUN (9-20) mg/dL Glucose (74-99) mg/dL POC Glucose (mg/dL) 148 H (75-99) mg/dL ALT (21-72) U/L Alkaline Phosphatase (38-126) U/L Total Protein (6.3-8.2) g/dL Homocysteine (4.00-14.00) umol/L Urine Glucose (UA) Trace H (Negative) Ur Leukocyte Esterase Moderate H (Negative) Urine WBC 7 H (0-5) /hpf Urine Bacteria Rare H (None) /hpf Urine Mucus Rare H (None) /hpf Microbiology - Last 24 Hours (Table) 02/20/18 06:56 Urine Culture - Final Urine,Clean Catch Assessment and Plan Plan: Impression: 1. Transient ischemic attack 2. Dysarthria, resolved 3. History of TIA 4. Episode of bradycardia 5. Recent fall with head trauma 6. History of Parkinson's 7. Diabetes mellitus 8. Hypertension Recommendation: It does appear patient had a transient ischemic attack with transient episode of dysarthria and word finding difficulty. These symptoms have since resolved. Patient denies any further symptoms since admission. Patient did experience recent fall with head trauma. Computed tomography scan of the brain did not show any acute process. CTA did not show any evidence of abnormality. Recent lipid panel was within normal limits except for low HDL of 38. MRI of the brain did not reveal any acute process. EEG was done and results are pending. Serum homocystine level is elevated and I will start him on Folbic daily. Continue Plavix 75 mg by mouth daily. Continue statin therapy. As for patient's bradycardia, cardiology's been consulted. Continue neurological checks. Patient has history of Parkinson's and follows with Dr. Mendez. Barring any abnormality on the EEG, patient is stable from a neurological standpoint for discharge. I will continue to follow with you on an as-needed basis. Feel free to call with any questions or concerns. I performed an examination of the patient and discussed the management with the [employer]. I have reviewed the [employer] notes and agree with the findings and plan of care.
[2018-02-22] MEDS: LEVOTHYROXINE 50 MCG TAB PO SCH (06:31)
[2018-02-22 07:25] LABS: Glucose,Whole Blood 142 mg/dL (75-99)
[2018-02-22 07:46] VITALS: BP 167/76; PULSE 67; RESP 16; TEMP 97.8
[2018-02-22] MEDS: glipiZIDE 5 MG TAB PO SCH (07:46)
[2018-02-22] MEDS: CLOPIDOGREL 75 MG TAB PO SCH (07:46)
[2018-02-22] MEDS: ATENOLOL 25 MG TAB PO SCH (07:47)
[2018-02-22] MEDS: PANTOPRAZOLE 40 MG TABLET PO SCH (07:47)
[2018-02-22] MEDS: metFORMIN 500 MG TAB PO SCH (07:47)
[2018-02-22] MEDS: CHOLECALCIFEROL 1,000 UNIT TAB PO SCH (07:47)
[2018-02-22] MEDS: LISINOPRIL-HCTZ 10-12.5 MG 1 EACH TAB PO SCH (07:47)
[2018-02-22] MEDS: ASPIRIN 81 MG PO SCH (07:49)
[2018-02-22] MEDS: ENOXAPARIN 40 MG/0.4 ML SYRINGE SQ SCH (07:49)
[2018-02-22 07:54] LABS: Basophils % (A) 1 %; Eosinophils # (A) 0.1 k/uL (0-0.7); Eosinophils % (A) 3 %; HGB 13.6 gm/dL (13.0-17.5); Lymphocytes # (A) 0.9 k/uL (1.0-4.8); Lymphocytes % (A) 21 %; MCH 29.8 pg (25.0-35.0); MCHC 33.1 g/dL (31.0-37.0); MCV 90.1 fL (80.0-100.0); Mean Platelet Volume 7.1; Monocytes # (A) 0.2 k/uL (0-1.0); Monocytes % (A) 5 %; Neutrophils % (A) 69 %; Platelet Count 127 k/uL (150-450); RBC 4.56 m/uL (4.30-5.90); RDW 13.7 % (11.5-15.5); WBC 4.4 k/uL (3.8-10.6)
[2018-02-22 08:21] LABS: Albumin 3.7 g/dL (3.5-5.0); Calcium 9.1 mg/dL (8.4-10.2); Potassium 3.8 mmol/L (3.5-5.1); Total Bilirubin 0.9 mg/dL (0.2-1.3); Total Protein 6.2 g/dL (6.3-8.2)
[2018-02-22 11:38] LABS: Glucose,Whole Blood 348 mg/dL (75-99)
[2018-02-22] MEDS ORDERED: CYANOCOBALAMIN-FA-PYRIDOXINE 1 EACH TAB PO SCH (12:00)
--- NOTE | 2018-02-22 12:13 | P.DS ---
Providers Date of admission: 02/19/18 14:49 Attending physician: Duc Houesr Consults: 02/19/18 14:49 Consult Physician Routine Consulting Provider: Good Noland Consult Reason/Comments: tia Do you want consulting provider notified?: Yes 02/20/18 11:01 Consult Physician Routine Consulting Provider: Ember Nicole Consult Reason/Comments: Bradycardia Do you want consulting provider notified?: Yes Primary care physician: Duc Mik [facility] Course: Diagnosis on discharge: 1. Slurred speech and delayed response secondary to TIA. Head CT completed showing no acute intracranial process. Mild cerebral volume loss, likely on the basis of age-related atrophy is seen on the prior. CTA completed showing no large vessel vascular occlusion, focal aneurysm or dissection of the head or neck. EKG showing normal sinus rythym Neurology services have been consulted. Patient currently on aspirin 81 mg daily plus Plavix 75 mg daily. Continue statin. PT and OT services consulted. Echo shows an EF of 50-55% Continue telemetry monitoring. No evidence of atrial fibrillation. Patient still needs EEG completed today. 2. Recent fall with trauma to head. Patient reports that he fell on Saturday. Patient does have bruising to bilateral eyes and abrasion to forehead 3. History of Parkinson's. Patient states he follows with Dr. Mendez 4. History of diabetes mellitus. Home medications resumed 5. History of hyperlipidemia. Pravastatin resumed 6. History of essential hypertension. Home medications resumed 7. History of osteoarthritis 8. Urinary frequency. Repeat urinalysis with culture. Discontinue IV fluids. 9. Sinus bradycardia heart rate into the 40s noted on telemetry. Patient is on 2 beta blockers atenolol and Inderal. Cardiology has discontinue the Inderal. Heart rate has improved. DVT prophylaxis Lovenox. GI prophylaxis Protonix Hospital course: This is an 87-year-old male patient that presented to the emergency room with complaints of slurred speech and trouble finding his words. Patient's daughters currently at bedside. Per family patient on Saturday and hit his head. Patient was brought into the emergency room and scans were completed and patient was later discharged. Per patient's family symptoms started this afternoon when daughter went over to check on her father. Since then symptoms have improved significantly. Patient has a known past medical history of Parkinson's, diabetes mellitus, hyperlipidemia, hypertension and osteoarthritis. CT of brain completed showing no acute intracranial process. Mild cerebral volume loss, likely on the basis of age-related atrophy is seen on prior. CTA completed showing not no large vessel vascular occlusion, focal aneurysm or dissection of the head or neck. Chest x-ray completed showing no acute cardiopulmonary process. EKG completed showing normal sinus rhythm. At this time patient is resting comfortably in bed. Bruising noted to bilateral eyes and forehead. No signs of facial droop or slurred speech at this time patient is delayed in response. Patient has equal strength throughout. Memory appears to be intact. Patient denies chest pain or shortness of breath. Patient denies any urinary burning or frequency. Neurology services have been consulted. Patient started on aspirin 325. 2-D echo has been ordered. 02/20/2018 patient reports that his speech has shown improvement. Awaiting neurology and cardiology evaluation. In telemetry room heart rate was reported down into the 40s. He is on 2 beta blockers the atenolol and Inderal. Patient denies any weakness on one side of the body. Denies any chest pain or shortness of breath. Denies any nausea vomiting bowel movement changes or urinary symptoms. 02/21/2018 patient is alert and orientated to 3 no issues with his speech. He underwent MRI of the brain no acute changes. Echo which showed an EF of 50-55% . Cardiology evaluated patient regarding bradycardia and the Inderal was discontinued and has had no further episodes of bradycardia. Awaiting EEG to be completed. At this time patient is on aspirin 81 mg daily plus Plavix. And his been followed by neurology. No arrhythmias noted on telemetry. He is complaining of some urinary frequency. Urinalysis with culture will be ordered. IV fluids discontinued. And drinking appropriately. On 02/22/2018 patient is alert and oriented 3 in no apparent distress he denies any new symptoms speech is back to baseline tests reviewed with patient and caregiver so far no significant abnormality on MRI, CAT scan, no significant carotid stenosis. EEG is still pending patient is feeling well, at this time will proceed with discharging patient to home Plavix 75 mg was added to her medication regimen by neurology also follow back 1 tablet daily was added. Will follow up in the office in 2-3 days at that time will review EEG results with patient Patient Condition at Discharge: Fair Plan - Discharge Summary Discharge Rx Participant: Yes New Discharge Prescriptions: New Clopidogrel [Plavix] 75 mg PO DAILY tab [id number] [Folbic] 1 each PO DAILY@1200 tab Continue Acetaminophen [Tylenol] 325 mg PO Q4H Alendronate Sodium [Fosamax] 70 mg PO Q7DAYS Aspirin [Adult Low Dose Aspirin EC] 81 mg PO DAILY Atenolol [Tenormin] 25 mg PO DAILY Cholecalciferol [Vitamin D3] 1,000 unit PO DAILY glipiZIDE [Glucotrol] 5 mg PO DAILY Latanoprost [Xalatan 0.005%] 1 drop BOTH EYES HS Levothyroxine Sodium [Synthroid] 50 mcg PO DAILY Lisinopril-Hctz 10-12.5 mg [Zestoretic 10-12.5] 1 tab PO DAILY metFORMIN HCL [Glucophage] 500 mg PO DAILY Pravastatin Sodium [Pravachol] 40 mg PO HS Propranolol HCl [Inderal] 60 mg PO DAILY Discharge Medication List Acetaminophen [Tylenol] 325 mg PO Q4H 02/19/18 [History] Alendronate Sodium [Fosamax] 70 mg PO Q7DAYS 02/19/18 [History] Aspirin [Adult Low Dose Aspirin EC] 81 mg PO DAILY 02/19/18 [History] Atenolol [Tenormin] 25 mg PO DAILY 02/19/18 [History] Cholecalciferol [Vitamin D3] 1,000 unit PO DAILY 02/19/18 [History] Latanoprost [Xalatan 0.005%] 1 drop BOTH EYES HS 02/19/18 [History] Levothyroxine Sodium [Synthroid] 50 mcg PO DAILY 02/19/18 [History] Lisinopril-Hctz 10-12.5 mg [Zestoretic 10-12.5] 1 tab PO DAILY 02/19/18 [History ] Pravastatin Sodium [Pravachol] 40 mg PO HS 02/19/18 [History] Propranolol HCl [Inderal] 60 mg PO DAILY 02/19/18 [History] glipiZIDE [Glucotrol] 5 mg PO DAILY 02/19/18 [History] metFORMIN HCL [Glucophage] 500 mg PO DAILY 02/19/18 [History] Clopidogrel [Plavix] 75 mg PO DAILY tab 02/22/18 [Rx] [id number]-RN-Mtklwaundb [Folbic] 1 each PO DAILY@1200 tab 02/22/18 [Rx] Follow up Appointment(s)/Referral(s): Good Noland MD [STAFF PHYSICIAN] - 1 Week Duc Houser MD [Primary Care Provider] - 02/28/18 11:00 am Patient Instructions/Handouts: Transient Ischemic Attack (DC), Bradycardia (DC)
--- NOTE | 2018-02-24 09:03 | EEG ---
ELECTROENCEPHALOGRAM REPORT DATE OF SERVICE: 02/21/2018 REASON FOR TESTING: Transient ischemic attack. DESCRIPTION OF THE PROCEDURE: This EEG was performed using a 21 channel digital electroencephalograph, following international 10-20 system. DESCRIPTION OF THE RECORDING: From the beginning of the tracing, with patient's eyes closed, the background rhythm was mostly consisting of 10 Hz alpha frequency in the posterior occipital leads. No obvious asymmetry is seen. Occasional movement artifacts are noticed. Photic stimulation was performed with a minimal driving response seen. No pathological waves were elicited. Hyperventilation was not performed. The patient remains awake throughout the tracing. No epileptiform discharges were seen. His EKG lead showed a regular rate and rhythm. INTERPRETATION: This awake EEG can be considered within normal limits. There was no asymmetry seen. No epileptiform discharges were noticed. The absence of epileptiform discharges does not rule out the diagnosis of epilepsy; therefore clinical correlation is recommended. MMNEEMA / WAYNE: [id number] /
[2018-02-26] MEDS ORDERED: Alendronate Sodium [Fosamax] 70 MG PO SCH (09:00)
== END 2018-02-22 12:54 | disposition home or self-care (01) | DRG 69 ==
LOC: EC 12:37 → 3SCARD 14:49 → OBSVTOIN 02-21 08:45 → 4SSUR 02-21 21:13 → UNDODISOB 02-22 12:54
PROVIDERS: ADMIT Internal Medicine; ATTEND Internal Medicine
DX: G45.9 Transient cerebral ischemic attack, unspecified (principal); R00.1 Bradycardia, unspecified; E03.9 Hypothyroidism, unspecified; E11.9 Type 2 diabetes mellitus without complications; E78.5 Hyperlipidemia, unspecified; G20 Parkinson's disease; I10 Essential (primary) hypertension; M19.90 Unspecified osteoarthritis, unspecified site; S09.90XA Unspecified injury of head, initial encounter; R35.0 Frequency of micturition; S00.81XA Abrasion of other part of head, initial encounter; S00.31XA Abrasion of nose, initial encounter; S00.83XA Contusion of other part of head, initial encounter; G31.9 Degenerative disease of nervous system, unspecified; Z87.891 Personal history of nicotine dependence; Z86.73 Personal history of transient ischemic attack (TIA), and cerebral infarction without residual deficits; Z79.83 Long term (current) use of bisphosphonates; Z79.82 Long term (current) use of aspirin; Z79.890 Hormone replacement therapy; Z79.84 Long term (current) use of oral hypoglycemic drugs; Z79.899 Other long term (current) drug therapy; W19.XXXA Unspecified fall, initial encounter
CPT/HCPCS: 36415; 70450; 70496; 70498; 70551; 71046; 80053; 80061; 81001; 82550; 82553; 83090; 84443; 84484; 85025; 85610; 85730; 87086; 93005; 93306; 95819; 96360; 99285